=== PATIENT | female | born 1955 | race Caucasian/White ===

== ENCOUNTER 2017-04-09 07:06 | Inpatient (IN) ==
[2017-04-09] MEDS ORDERED: 0.9 % Sodium Chloride 1,000 ML IVC ONE ×2 (07:11→08:21)
[2017-04-09] MEDS ORDERED: levETIRAcetam 1,000 MG in 0.9 % Sodium Chloride 100 ML IVPB ONE (07:19)
[2017-04-09] MEDS ORDERED: *HR* LORazepam 2 MG/ML VIAL IVP ONE (07:19)
[2017-04-09] MEDS ORDERED: *HR* LORazepam 2 MG/ML VIAL ONE (07:19)
[2017-04-09 08:00] LABS: Bilirubin,Urine Negative (Negative); Blood,Urine Small (Negative); Clarity,Urine Clear (Clear); Color,Urine Yellow (Yellow); Glucose,Urine (UA) >=1000 mg/dL (Normal); Ketones,Urine Negative (Negative); Leukocyte Esterase,Urine Negative (Negative); Nitrite,Urine Positive (Negative); PH,Urine 5.5 pH Units (5.0-8.0); Protein,Urine Negative (Neg-Trace); Specific Gravity,Urine 1.028 (1.010-1.025); Urobilinogen,Urine Normal (Normal)
[2017-04-09 08:03] LABS: Bacteria,Urine Many per hpf (None-Few); Hyaline Casts,Urine None Seen per lpf (None-Few); Squamous Epithelial Cell,Urine None Seen per lpf (None-Few); WBC,Urine 15-30 per hpf (0-3)
[2017-04-09 08:06] LABS: Hematocrit 38.4 % (35.3-44.9); Hemoglobin 11.7 g/dL (11.5-15.4); Immature Granulocytes % 1.3 % (0-4); Lymphocytes # 0.2 K/mcL (0.6-4.6); Lymphocytes % 3.7 %; Mean Corpuscular HGB Conc 30.5 g/dL (31.6-35.5); Mean Corpuscular Hemoglobin 28.5 pg (28.0-33.3); Mean Corpuscular Volume 93.7 fL (83.0-100.0); Mean Platelet Volume 10.5 fL (9.4-12.4); Monocytes # 0.2 K/mcL (0.0-1.3); Monocytes % 2.4 %; Neutrophils # 5.8 K/mcL (1.6-8.9); Platelet Count 127 K/mcL (140-400); Red Cell Distribution Width 15.3 % (11.5-14.5); Segmented Neutrophils % 92.6 %
[2017-04-09] MEDS ORDERED: cefTRIAXone 1,000 MG in Water for inj. (sterile) 10 ML IVP ONE (08:11)
--- NOTE | 2017-04-09 08:14 | Emergency Department Note ---
START Narrative - START START: I examined this patient and my medical decision-making was reviewed with the Resident Physician. I agree with the documented findings, disposition and treatment plan as described except to the extent set forth below. 61-year-old female presented to the emergency room for a seizure. Patient has history of a brain tumor resection in the right frontal lobe and underwent radiation secondary to malignant melanoma. She recently moved to [place] from [place]. Unclear exactly how long her seizure lasted today. She does take Keppra twice daily for her seizures. She states she has never actually had a seizure but was put on the medication to prevent them. She has no focal motor or sensory deficits. CT of the brain was unremarkable for any acute process. She had 2 seizures in the emergency room. She was given Ativan 2 mg and also given 1 g of Keppra IV. pt to be admitted +UTI sugars elevated Insulin, IV fluids consult with Neuro and Hospitalist critical care time of 35 min spent in medical management of seizures, hyperglycemia, UTI.
[2017-04-09 08:17] LABS: VBG HCO3 19 mEq/L (21-27); VBG PCO2 36 mmHg (41-51); VBG PH 7.32 pH Units (7.32-7.42); VBG PO2 134 mmHg (25-50)
[2017-04-09 08:20] LABS: Alanine Aminotransferase 17 Units/L (0-55); Albumin 3.1 g/dL (3.5-5.0); Albumin/Globulin Ratio 0.8 (1.1-2.2); Alkaline Phosphatase 121 Units/L (38-126); Aspartate Amino Transferase 6 Units/L (5-34); BUN/Creatinine Ratio 19 (6-26); Bilirubin,Total 0.3 mg/dL (0.2-1.2); Blood Urea Nitrogen 27 mg/dL (7-20); Carbon Dioxide 16 mEq/L (19-29); Chloride 95 mEq/L (98-109); Globulin 3.7 g/dL (2.4-3.5); Magnesium 2.1 mg/dL (1.6-2.6); Osmolality,Calculated 319 (280-300); Phosphorous 4.3 mg/dL (2.3-4.7); Potassium 4.7 mEq/L (3.5-4.5); Sodium 130 mEq/L (136-145); Total Protein 6.8 g/dL (6.0-8.3); eGFR For African Americans 46 (> 60); eGFR For Non-African Americans 38 (> 60)
[2017-04-09 08:21] LABS: Acetaminophen < 1.0 mcg/mL (10-30); Ethanol < 10 mg/dL (0-10); Glucose 894 mg/dL (70-99)
[2017-04-09 08:28] LABS: Amphetamine Screen,Urine Negative ng/mL (Cutoff=1000); Barbiturate Screen,Urine Negative ng/mL (Cutoff=200); Benzodiazepines Screen,Urine Negative ng/mL (Cutoff=200); Cannabinoid Screen,Urine Negative ng/mL (Cutoff = 50); Cocaine Screen,Urine Negative ng/mL (Cutoff= 300); Opiate Screen,Urine Negative ng/mL (Cutoff=300); Phencyclidine Screen,Urine Negative ng/mL (Cutoff=25)
[2017-04-09 08:34] LABS: Beta-Hydroxybutyric Acid 0.27 mmol/L (0.02-0.27)
[2017-04-09] MEDS ORDERED: *HR* Dextrose 50 % in Water (Syg) 50 ML SYRINGE IVP PRN ×2 (08:36→18:34)
[2017-04-09] MEDS ORDERED: Insulin Human Regular 100 UNIT in 0.9 % Sodium Chloride 100 ML IVC SCH (08:45)
--- NOTE | 2017-04-09 08:46 | Emergency Department Note ---
Disposition Clinical Impression: Metastatic melanoma, Hyperglycemia, Seizure, Lactic acid acidosis Disposition: Admitted As Inpatient Condition: Fair Time of Disposition: 08:56 Neuro HPI - General Chief Complaint: ED Neuro Symptoms/Deficit Stated Complaint: Seizure Time Seen by Provider: 04/09/17 07:11 Source: patient, family, EMS Mode of arrival: EMS Limitations: altered mental status Nursing Notes Reviewed: Yes Vital Signs Reviewed: Yes - History of Present Illness HPI Narrative: Patient presents to the ED and was evaluated immediately upon arrival. Patient has no known history of seizure disorder. EMS states that they were called for her new onset left-sided paralysis. Upon arrival in obtaining more history from EMS. The patient does have a history of metastatic melanoma with brain malignancy that was removed in [place] a few months ago, surgically. She has had radiation and chemotherapy with her last dose about 2 weeks ago. They placed her on Keppra as prophylaxis for seizures. They also took her off her Lantus about a month ago and placed her on prednisone about 2 weeks ago. Family reports that the patient's blood sugar read high this morning and she was confused. States she was not feeling well when she went to bed last night and woke up this morning and was not responding as well to them. States initially she could not move her left upper extremity but that is now are resolved. She did have one generalized tonic-clonic seizure lasting less than a minute. It was witnessed by EMS. She also had a partial seizure witnessed by family. Upon arrival to the emergency department. She did have one generalized tonic-clonic seizure lasting about 45 seconds. 2 mg of IV Ativan were given with resolution of her seizure. Patient was initially alert and oriented and responding appropriately to questions. Denies any pain. States that she has had some burning with urination. No shortness breath or abdominal pain. - Related Data Home Medications: Home Medications Medication Instructions Recorded Confirmed Albuterol Sulfate [Albuterol 2 puff IH Q4HR PRN 01/10/15 04/09/17 Inhaler] Allopurinol [Zyloprim] 100 mg PO BID 01/10/15 04/09/17 Citalopram Hydrobromide [Celexa] 40 mg PO DAILY 01/10/15 04/09/17 Furosemide [Lasix] 80 mg PO DAILY 01/10/15 04/09/17 Indomethacin 50 mg PO QID PRN 01/10/15 04/09/17 Fluticasone Propionate [Flovent 220 mcg IH BID 02/02/16 04/09/17 Hfa] Gabapentin [Neurontin] 400 mg PO TID 04/09/17 04/09/17 LevETIRAcetam [Keppra] 500 mg PO BID 04/09/17 04/09/17 Levothyroxine Sodium [Synthroid] 200 mcg PO DAILY 04/09/17 04/09/17 Losartan [Cozaar] 25 mg PO DAILY 04/09/17 04/09/17 Omeprazole [PriLOSEC] 20 mg PO DAILY 04/09/17 04/09/17 PredniSONE [Deltasone] 20 mg PO AD 04/09/17 04/09/17 Previous Rx's Medication Instructions Recorded Prochlorperazine Maleate 10 mg PO Q6HR PRN #60 tablet 01/30/16 [Compazine] Oxycodone HCl 10 - 20 mg PO Q6H PRN #150 tab 03/07/16 Allergies/Adverse Reactions: Allergies Allergy/AdvReac Type Severity Reaction Status Date / Time No Known Allergies Allergy Verified 04/09/17 08:06 All systems ED: reviewed and negative except as stated. Constitutional: Denies: fever Eyes: Denies: vision change Cardiovascular: Denies: chest pain Respiratory: Denies: dyspnea Gastrointestinal: Denies: vomiting Genitourinary: Reports: urgency, dysuria Musculoskeletal: Denies: back pain Integumentary: Denies: rash Neurological: Reports: as per HPI, weakness, confusion. Denies: headache Endocrine: Reports: fatigue Past Medical History - Past Medical History Attestation: Yes The following information was validated with the patient. Source: patient Medical history: Reports: cancer, diabetes, hypertension, thyroid disease Surgical history: Reports: appendectomy, knee replacement (Bilateral TKR), other (LLE limb perfusion/infusion) Psychiatric history: Reports: no psych history PRICING ANALYST history: Reports: no PRICING ANALYST history - Social History Smoking Status: Former smoker Smokeless Tobacco Status: No Alcohol use: Reports: none Drug use: Reports: none Physical Exam - General Limitations: no limitations General appearance: lethargic (Sleepy but arouses easily) - Head Head exam: atraumatic, normocephalic, normal inspection - Eye Eye exam: Present: normal appearance, PERRL. Absent: EOMI - ENT ENT exam: normal exam, normal oropharynx, mucous membranes dry - Neck Neck exam: Absent: tenderness, meningismus - Chest Chest inspection: Present: normal inspection, symmetric chest wall rise - Respiratory Respiratory exam: Present: normal lung sounds bilaterally - Cardiovascular Cardiovascular exam: Present: regular rate, normal rhythm, normal heart sounds - Abdominal Exam Abdominal exam: Present: soft, Non-Tender. Absent: tenderness, distention, guarding, rebound, rigidity - Extremities Exam Extremities exam: Present: normal inspection, normal capillary refill, pedal edema - Expanded Lower Extremity Exam Hip/Pelvis exam: Present: pelvis stable - Neurological Exam Neurological exam: Present: alert (but sleepy, slightly confused, answers questions appropriately), oriented X3, CN II-XII intact - Expanded Neurological Exam Patient oriented to: Present: person, place, time Speech: Present: fluid speech Cranial nerves: facial palsy (VII): Normal (Patient easily distracted and will not follow commands to finish. Cranial nerve exam. Grossly unremarkable) Motor strength - LUE: 5/5 Motor strength - RUE: 5/5 Motor strength - LLE: 4/5 Motor strength - RLE: 5/5 Upper motor neuron exam: sandee neglect: Absent bilaterally, pronator drift: Absent bilaterally Sensory exam upper extremity: light touch: Normal Sensory exam lower extremity: light touch: Normal Coma Scale Eye Opening: Spontaneous Coma Scale Motor Response: Obeys Commands Coma Scale Verbal Response: Confused Coma Scale Total: 14 - Skin Skin exam: Present: warm, dry, intact, normal color Course Course Narrative: 61-year-old female with metastatic melanoma presenting with new onset seizure. We will get a head CT, chest x-ray, labs, EKG and admit. - Reevaluation(s) Reevaluation #1: Patient did have a 45 second generalized tonic-clonic seizure in the ER. Gave 2 mg of IV Ativan. No eye deviation. Patient postictal currently. Also given a gram of Breath. We will consult neurology and admitted to the hospitalist service. Patient's glucose is almost 900. Serum ketones are normal. She is not acidotic. There is no anion gap. Not likely DKA. Likely due to her steroids and being taken off her insulin. We will start her on an insulin drip and admit her to 2 N. - Consultations Consultation #1: I spoke with the on-call neurologist, Dr. Middleton. No further recommendations will admit for MRI and consultation Vital Signs Temperature 0 F L 04/09/17 07:16 Pulse Rate 106 04/09/17 07:16 Respiratory Rate 18 04/09/17 07:16 Blood Pressure 168/144 04/09/17 07:16 O2 Sat by Pulse Oximetry 97 04/09/17 07:16 Temperature 0 F L 04/09/17 07:16 Pulse Rate 97 04/09/17 09:53 Respiratory Rate 14 04/09/17 09:52 Blood Pressure 166/100 04/09/17 09:52 O2 Sat by Pulse Oximetry 96 04/09/17 10:06 Oxygen Delivery Oxygen Delivery Nasal Cannula Neuro Symptoms/Deficit - Medical Records Medical records reviewed: Yes I reviewed the patient's medical records. - Lab Data Lab results reviewed: Yes I reviewed the patient's lab results. Result diagrams: 04/09/17 07:59 04/09/17 10:22 Lab Results 04/09/17 04/09/17 04/09/17 Range/Units 07:45 07:45 07:59 WBC 6.2 (4.3-11.1) K/mcL RBC 4.10 (3.82-4.97) M/mcL Hgb 11.7 (11.5-15.4) g/dL Hct 38.4 (35.3-44.9) % MCV 93.7 (83.0-100.0) fL MCH 28.5 (28.0-33.3) pg MCHC 30.5 L (31.6-35.5) g/dL RDW 15.3 H (11.5-14.5) % Plt Count 127 L (140-400) K/mcL MPV 10.5 (9.4-12.4) fL Immature Gran % 1.3 (0-4) % Seg Neutrophils % 92.6 % Lymphocytes % 3.7 % Monocytes % 2.4 % Eosinophils % 0.0 % Basophils % 0.0 % Neutrophils # 5.8 (1.6-8.9) K/mcL Lymphocytes # 0.2 L (0.6-4.6) K/mcL Monocytes # 0.2 (0.0-1.3) K/mcL Eosinophils # 0.0 (0.0-0.6) K/mcL Basophils # 0.0 (0.0-0.2) K/mcL Immature Plt Fraction 2.0 (1.1-6.1) % VBG pH (7.32-7.42) pH Units VBG pCO2 (41-51) mmHg VBG pO2 (25-50) mmHg VBG HCO3 (21-27) mEq/L Sodium (136-145) mEq/L Potassium (3.5-4.5) mEq/L Chloride (98-109) mEq/L Carbon Dioxide (19-29) mEq/L BUN (7-20) mg/dL Creatinine (0.57-1.11) mg/dL Est GFR ( Amer) (> 60) Est GFR (Non-Af Amer) (> 60) BUN/Creatinine Ratio (6-26) Glucose (70-99) mg/dL Calculated Osmolality (280-300) Lactic Acid (0.5-2.2) mmol/L Calcium (8.6-10.8) mg/dL Phosphorus (2.3-4.7) mg/dL Magnesium (1.6-2.6) mg/dL Total Bilirubin (0.2-1.2) mg/dL AST (5-34) Units/L ALT (0-55) Units/L Alkaline Phosphatase (38-126) Units/L Serum Total Protein (6.0-8.3) g/dL Albumin (3.5-5.0) g/dL Globulin (2.4-3.5) g/dL Albumin/Globulin Ratio (1.1-2.2) Beta-Hydroxybutyric Acd (0.02-0.27) mmol/L Urine Color Yellow (Yellow) Urine Clarity Clear (Clear) Urine pH 5.5 (5.0-8.0) pH Units Ur Specific [place] 1.028 H (1.010-1.025) Urine Protein Negative (Neg-Trace) mg/dL Urine Glucose (UA) >=1000 H (Normal) mg/dL Urine Ketones Negative (Negative) mg/dL Urine Blood Small H (Negative) Urine Nitrite Positive A (Negative) Urine Bilirubin Negative (Negative) Urine Urobilinogen Normal (Normal) mg/dL Ur Leukocyte Esterase Negative (Negative) Urine Microscopic RBC 3-5 H (0-3) per hpf Urine Microscopic WBC 15-30 H (0-3) per hpf Ur Squamous Epith Cells None Seen (None-Few) per lpf Urine Bacteria Many H (None-Few) per hpf Hyaline Casts None Seen (None-Few) per lpf Urine Opiates Screen Negative (Gxfena=578) ng/mL Acetaminophen (10-30) mcg/mL Ur Barbiturates Screen Negative (Nhdakw=797) ng/mL Ur Phencyclidine Scrn Negative (Cutoff=25) ng/mL Ur Amphetamines Screen Negative (Rvcewm=8347) ng/mL U Benzodiazepines Scrn Negative (Jwyxsw=697) ng/mL Urine Cocaine Screen Negative (Cutoff= 300) ng/mL U Marijuana (THC) Screen Negative (Cutoff = 50) ng/mL Ethyl Alcohol (0-10) mg/dL 04/09/17 04/09/17 04/09/17 Range/Units 07:59 07:59 08:12 WBC (4.3-11.1) K/mcL RBC (3.82-4.97) M/mcL Hgb (11.5-15.4) g/dL Hct (35.3-44.9) % MCV (83.0-100.0) fL MCH (28.0-33.3) pg MCHC (31.6-35.5) g/dL RDW (11.5-14.5) % Plt Count (140-400) K/mcL MPV (9.4-12.4) fL Immature Gran % (0-4) % Seg Neutrophils % % Lymphocytes % % Monocytes % % Eosinophils % % Basophils % % Neutrophils # (1.6-8.9) K/mcL Lymphocytes # (0.6-4.6) K/mcL Monocytes # (0.0-1.3) K/mcL Eosinophils # (0.0-0.6) K/mcL Basophils # (0.0-0.2) K/mcL Immature Plt Fraction (1.1-6.1) % VBG pH 7.32 (7.32-7.42) pH Units VBG pCO2 36 L (41-51) mmHg VBG pO2 134 H (25-50) mmHg VBG HCO3 19 L (21-27) mEq/L Sodium 130 L (136-145) mEq/L Potassium 4.7 H (3.5-4.5) mEq/L Chloride 95 L (98-109) mEq/L Carbon Dioxide 16 L (19-29) mEq/L BUN 27 H (7-20) mg/dL Creatinine 1.42 H (0.57-1.11) mg/dL Est GFR ( Amer) 46 L (> 60) Est GFR (Non-Af Amer) 38 L (> 60) BUN/Creatinine Ratio 19 (6-26) Glucose 894 H* (70-99) mg/dL Calculated Osmolality 319 H (280-300) Lactic Acid 10.9 H* (0.5-2.2) mmol/L Calcium 9.0 (8.6-10.8) mg/dL Phosphorus 4.3 (2.3-4.7) mg/dL Magnesium 2.1 (1.6-2.6) mg/dL Total Bilirubin 0.3 (0.2-1.2) mg/dL AST 6 (5-34) Units/L ALT 17 (0-55) Units/L Alkaline Phosphatase 121 (38-126) Units/L Serum Total Protein 6.8 (6.0-8.3) g/dL Albumin 3.1 L (3.5-5.0) g/dL Globulin 3.7 H (2.4-3.5) g/dL Albumin/Globulin Ratio 0.8 L (1.1-2.2) Beta-Hydroxybutyric Acd 0.27 (0.02-0.27) mmol/L Urine Color (Yellow) Urine Clarity (Clear) Urine pH (5.0-8.0) pH Units Ur Specific [place] (1.010-1.025) Urine Protein (Neg-Trace) mg/dL Urine Glucose (UA) (Normal) mg/dL Urine Ketones (Negative) mg/dL Urine Blood (Negative) Urine Nitrite (Negative) Urine Bilirubin (Negative) Urine Urobilinogen (Normal) mg/dL Ur Leukocyte Esterase (Negative) Urine Microscopic RBC (0-3) per hpf Urine Microscopic WBC (0-3) per hpf Ur Squamous Epith Cells (None-Few) per lpf Urine Bacteria (None-Few) per hpf Hyaline Casts (None-Few) per lpf Urine Opiates Screen (Qsbhve=152) ng/mL Acetaminophen < 1.0 L (10-30) mcg/mL Ur Barbiturates Screen (Jbnrvr=383) ng/mL Ur Phencyclidine Scrn (Cutoff=25) ng/mL Ur Amphetamines Screen (Oevxuk=3093) ng/mL U Benzodiazepines Scrn (Oadxtl=085) ng/mL Urine Cocaine Screen (Cutoff= 300) ng/mL U Marijuana (THC) Screen (Cutoff = 50) ng/mL Ethyl Alcohol < 10 (0-10) mg/dL - Radiology Data Radiology results reviewed: Yes I reviewed the patient's radiology results. Head CT 04/09/17 07:11 IMPRESSION: No acute intracranial abnormality. Area of encephalomalacia with calcifications in the right frontal lobe, likely relating to postsurgical change relating to clinical history of prior surgical intervention for brain tumor. No definite recurrent or new tumor is identified on this noncontrast head CT. MRI would be a more sensitive modality to assess for tumor recurrence or new tumor. D/ / 04/09/2017 07:56:35 Serjio Yin MD / Danyell Bueno Interpreting Provider: Serjio Yin MD Chest X-Ray 04/09/17 08:14 IMPRESSION: 1. No acute cardiopulmonary disease. 2. On the previous chest CT from 2015, there were multiple pulmonary metastatic lesions. These are not evident on the current chest x-ray. Consider further evaluation with chest CT to evaluate for response to therapy. D/ / Steve Swan MD / Steve Swan MD Interpreting Provider: Steve Swan MD - EKG Data EKG attestation: Yes I reviewed and interpreted this EKG. EKG results narrative: Sinus tach, rate 106, ND interval 201, QRS 122, QTC 423, borderline right axis deviation, right bundle-branch block, no previous available TPA Checklist - LKW: 3-4.5 hrs Add. Warnings/Precautions Patient/family understanding: The patient/family members have been counseled and understood the risk, benefit , and alternatives of treatment. Critical Care Time Critical Care Time: Yes Total Critical Care Time: 30 Attestation: Critical care performed: Time is exclusive of separately billable procedures. Time includes: direct patient care, patient reassessment, coordination of patient care, interpretation of data (laboratory data, radiology data, and respiratory data), review of patient's medical records, medical consultation and documentation of patient care. Procedures included in critical care time: 30 minutes of critical care time for this critically ill patient. Patient has had recurrent seizures with history of malignant melanoma. Time spent in consultation, medical stabilization and reviewing laboratory results. Procedures excluded from critical care time:
[2017-04-09] MEDS ORDERED: 0.9 % Sodium Chloride 250 ML ONE (11:53)
[2017-04-09] MEDS ORDERED: Naloxone 0.4 MG/ML INJ IVP PRN (12:05)
[2017-04-09] MEDS ORDERED: Ondansetron 4 MG/2 ML VIAL IVP PRN (12:05)
[2017-04-09] MEDS ORDERED: *HR* Morphine 2 MG/ML SYRINGE IVP PRN (12:05)
[2017-04-09] MEDS ORDERED: *HR* HYDROcodone/Acet 5/325 mg TABLET PO PRN (12:05)
[2017-04-09] MEDS ORDERED: Acetaminophen 325 MG TABLET PO PRN (12:05)
[2017-04-09] MEDS ORDERED: Indomethacin 25 MG CAPSULE PO PRN (12:11)
[2017-04-09] MEDS ORDERED: predniSONE 20 MG TABLET PO SCH (12:15)
--- NOTE | 2017-04-09 12:53 | Internal Med History&Physical ---
<Lj Zuluaga - Last Filed: 04/09/17 15:43> Date of Encounter: 04/09/17 Time of Encounter: 11:30 Assessment and Plan (1) Seizure Current visit: Yes Status: Acute Patient's family reports two short-term seizures this morning most likely d/t pts. acute hyperglycemia of 894. Pt. and family deny hx of previous seizures. Heasd CT today shows area of encephalomalacia with calcifications in the right frontal lobe, likely relating to postsurgical change relating to clinical history of prior surgical intervention for brain tumor. No definite recurrent or new tumor is identified on this noncontrast head CT. MRI would be a more sensitive modality to assess for tumor recurrence or new tumor. Will continue Keppra. Insulin drip started to address hyperglycemia. Neuro checks Q4HR. Seizure precautions. Falls/safety precautions. Neurology consult ordered. NPO for now until ordered dysphagia/bedside swallow eval passed by pt. IV 0.9 NS @ 75 mL/ HR. Patient at risk for further morbidity due to current infection and seizure activity today, hx, and risk factors. Inpatient. (2) UTI (urinary tract infection) Current visit: Yes Status: Acute Initial U/A indicative for UTI. IVPB ceftriaxone 1,000 mg daily ordered for infection coverage. Monitor I&O and f/u labs. Qualifiers: Urinary tract infection type: site unspecified Hematuria presence: with hematuria Qualified Code(s): N39.0 - Urinary tract infection, site not specified; R31.9 - Hematuria, unspecified; R31.9 - Hematuria, unspecified (3) Weakness Current visit: Yes Status: Acute Acute weakness d/t seizure activity. Falls/safety precautions. PT/OT consults to assess for strength and stability for post-discharge planning. (4) Hyperglycemia Current visit: Yes Status: Acute BG of 894 on admission d/t being taken off of insulin following surgery several weeks ago and being placed on PO steroids. Insulin drip started. Will continue drip until hyperglycemia resolves and discontinue. Restart pts. insulin w/low- dose correction and hypoglycemic protocol after drip stopped. BG checks Q1HR then ACHS. A1c in a.m. labs. (5) Elevated lactic acid level Current visit: Yes Status: Acute Acutely elevated lactic acid of 4.2 most likely d/t seizures this morning versus UTI indicated by U/A. Repeat timed lactics. Pt. placed on IVPB ceftriaxone for UTI. (6) ERIC (acute kidney injury) Current visit: Yes Status: Acute ERIC with GFR of 38 and creatinine of 1.42. Will use IV fluids judiciously and avoid nephrtoxins (hold indomethacin). Monitor I&O and f/u labs. (7) HTN (hypertension) Current visit: Yes Status: Chronic Hx of chronic HTN. Monitor pt. and VS. Continue pts. Cozaar. Qualifiers: Hypertension type: essential hypertension Qualified Code(s): I10 - Essential (primary) hypertension (8) HLD (hyperlipidemia) Current visit: Yes Status: Chronic Hx of chronic HLD. Pt. does not currently take statin. Lipid panel in a.m. labs. Lipitor 20 mg HS. Qualifiers: Hyperlipidemia type: pure hypercholesterolemia Qualified Code(s): E78.00 - Pure hypercholesterolemia, unspecified; E78.0 - Pure hypercholesterolemia (9) Thyroid disease Current visit: Yes Status: Chronic Hx of chronic thyroid disease. Continue pts. Synthroid. (10) Metastatic cancer Current visit: Yes Status: Chronic Hx of cancer with metastases tot he lung and brain. Currently stable. Pt. to be followed by her oncologist. (11) Diabetes mellitus Current visit: Yes Status: Chronic Hx of chronic diabetes controlled w/insulin. Pt. taken off of her insulin following surgery from removal of malignant brain tumor several weeks ago. Presents with acute hyperglycemia on admission (894). Placed on insulin drip. BG now 284 several hours later. Will discontinue insulin drip and resume pts. regular insulin dosing with correction sliding scale and hypoglycemic protocol. BG checks Q1HR then ACHS. A1c in a.m. labs. Qualifiers: Diabetes mellitus type: type 2 Diabetes mellitus complication status: with hyperglycemia Diabetes mellitus vermin exterminator insulin use: with alf use Qualified Code(s): E11.65 - Type 2 diabetes mellitus with hyperglycemia; Z79.4 - group home (current) use of insulin (12) DVT prophylaxis Current visit: Yes Status: Acute Heparin 5,000 units SQ Q8 for DVT prophylaxis. Internal Medicine - H&P: HPI Chief complaint: Seizures Admitted From: Emergency Dept Plans for Post Hospital Care: Home History of present illness: Ms. 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 Patient's family reports she recently had malignancy of the brain removed and was placed on chemotherapy and steroid approximately 2 weeks ago. She was taken off her Lantus approximately month ago from the surgery and blood glucose was greater than 800 today on admission. Patient reports left- sided weakness and short-term confusion related to seizures but denies recent illness, fever, chills, nausea, vomiting, abdominal pain, shortness of breath, chest pain, palpitations, changes in vision, unusual bleeding, headache, dizziness, lightheadedness, pre-syncope, or syncope. Past Med Surg Social Fam HX - Past Medical History Source: patient, old records reviewed, obtained from family Medical history: cancer, COPD, diabetes, hypertension, kidney stones, thyroid disease Psychiatric history: no psych history - Past Surgical History Surgical History: appendectomy, knee replacement (Bilateral TKR), other (LLE limb perfusion/infusion) - Social History Smoking Status: Former smoker Smokeless Tobacco Status: No Alcohol use: none Drug use: none Current living situation: Home, With Family Activity Level: Independent ambulation, Uses cane/walker Recent Out of Country Travel Within the Last 8 Weeks: No Exposure or Possible Exposure to Illness During Travel: No Internal Medicine - H&P: Meds Albuterol Sulfate [Albuterol Inhaler] 2 puff IH Q4HR PRN 01/10/15 [History] Allopurinol [Zyloprim] 100 mg PO BID 01/10/15 [History] Citalopram Hydrobromide [Celexa] 40 mg PO DAILY 01/10/15 [History] Furosemide [Lasix] 80 mg PO DAILY 01/10/15 [History] Indomethacin 50 mg PO QID PRN 01/10/15 [History] Prochlorperazine Maleate [Compazine] 10 mg PO Q6HR PRN #60 tablet 01/30/16 [Rx] Fluticasone Propionate [Flovent Hfa] 220 mcg IH BID 02/02/16 [History] Oxycodone HCl 10 - 20 mg PO Q6H PRN #150 tab 03/07/16 [Rx] Gabapentin [Neurontin] 400 mg PO TID 04/09/17 [History] LevETIRAcetam [Keppra] 500 mg PO BID 04/09/17 [History] Levothyroxine Sodium [Synthroid] 200 mcg PO DAILY 04/09/17 [History] Losartan [Cozaar] 25 mg PO DAILY 04/09/17 [History] Omeprazole [PriLOSEC] 20 mg PO DAILY 04/09/17 [History] PredniSONE [Deltasone] 20 mg PO AD 04/09/17 [History] 3 Allergy/AdvReac Type Severity Reaction Status Date / Time No Known Allergies Allergy Verified 04/09/17 08:06 All Systems PM: A 10-system review of systems was performed and is negative for pertinent findings except as documented above in the HPI. - Constitutional Constitutional: as per HPI, weakness, no chills, no fever(s), no night sweats - EENT Eyes: no change in vision, no discharge, no pain, no photophobia Ears: no ear discharge, no ear pain, no tinnitus Nose, mouth and throat: no dysphagia, no nasal discharge, no neck pain, no sore throat - Breasts Breasts: as per HPI - Cardiovascular Cardiovascular ROS IM: no chest pain, no diaphoresis, no dyspnea, no lightheadedness, no palpitations, no syncope - Respiratory Respiratory: no cough, no dyspnea, no wheezing, no excessive phlegm production - Gastrointestinal Gastrointestinal: no abdominal pain, no diarrhea, no hematemesis, no hematochezia, no melena, no nausea, no vomiting - Genitourinary Genitourinary: no change in urinary stream, no dysuria, no flank pain, no hematuria Menstruation: as per HPI - Musculoskeletal Musculoskeletal ROS IM: no numbness, no tingling - Integumentary Integumentary IM: skin ulcer (Left lower padilla) - Neurological Neurological ROS: as per HPI, disequilibrium, weakness, other (Seizures x2) - Psychiatric Psychiatric: as per HPI - Endocrine Endocrine IM: as per HPI - Hematologic/Lymphatic Hematologic/Lymphatic: no easy bruising - Allergic/Immunologic Allergic/Immunologic: as per HPI - Constitutional Vitals: Temp Pulse Resp BP Pulse Ox 0 F L 97 14 166/100 96 04/09/17 07:16 04/09/17 09:53 04/09/17 09:52 04/09/17 09:52 04/09/17 10:06 General appearance: Present: cooperative, A&O X 2, pleasant, no acute distress, obese, answers questions appropriately - Head Head exam: Present: atraumatic, normal inspection, normocephalic - Eye Eye exam: Present: PERRL, conjuntiva pink, sclera anicteric Pupils: Present: PERRL - ENT ENT exam: Present: normal exam, normal external ear exam - Neck Neck exam general surgery: Present: normal inspection, supple, trachea midline. Absent: lymphadenopathy - Respiratory Respiratory exam: Present: CTAB. Absent: accessory muscle use, rales, rhonchi, wheezes - Cardiovascular Cardiovascular exam: Present: +S1, +S2, tachycardia. Absent: diastolic murmur, gallop, rubs, systolic murmur - GI/Abdominal GI/Abdominal exam: Present: normal bowel sounds, soft, no peritoneal signs. Absent: distended, tenderness - Rectal Rectal exam: Present: deferred - Additional comments: exam deferred. - Extremities Exam Extremities exam: Present: warm, radial pulses palpable and symmetrical. Absent : calf tenderness, cyanotic, pedal edema - Back Exam Back exam: Present: normal inspection - Neurological Exam Neurological exam: Present: alert, CN II-XII intact, no focal deficits. Absent : pronater drift, facial droop, speech deficit - Psychiatric Psychiatric exam: Present: normal affect, normal mood - Skin Skin exam: Present: erythema (Around wound located on lower left padilla) Internal Med - H&P Results - Labs CBC & Chem 7: 04/09/17 07:59 04/09/17 10:22 Labs: BMP 04/09/17 10:22 Glucose 556 H* - Diagnostic Studies Chest x-ray Additional comments: Impressions Chest X-Ray 04/09/17 08:14 IMPRESSION: 1. No acute cardiopulmonary disease. 2. On the previous chest CT from 2016, there were multiple pulmonary metastatic lesions. These are not evident on the current chest x-ray. Consider further evaluation with chest CT to evaluate for response to therapy. D/ / Steve Swan MD / Steve Swan MD Interpreting Provider: Setve Swan MD CT scan - head Additional comments: Impressions Head CT 04/09/17 07:11 IMPRESSION: No acute intracranial abnormality. Area of encephalomalacia with calcifications in the right frontal lobe, likely relating to postsurgical change relating to clinical history of prior surgical intervention for brain tumor. No definite recurrent or new tumor is identified on this noncontrast head CT. MRI would be a more sensitive modality to assess for tumor recurrence or new tumor. D/ / 04/09/2017 07:56:35 Serjio Yin MD / Danyell Bueno Interpreting Provider: Serjio Yin MD <Peña Castellanos P - Last Filed: 04/09/17 18:46> Date of Encounter: 04/09/17 Internal Medicine - H&P: HPI History of present illness: Ms. Uribe is a 61 year old female All Systems PM: A 10-system review of systems was performed and is negative for pertinent findings except as documented above in the HPI. - Constitutional Vitals: Temp Pulse Resp BP Pulse Ox 98.3 F 95 19 138/72 99 04/09/17 15:20 04/09/17 15:20 04/09/17 15:20 04/09/17 15:20 04/09/17 15:20 Internal Med - H&P Results - Labs CBC & Chem 7: 04/09/17 07:59 04/09/17 10:22 - Attending Attestation I examined this patient and my medical decision-making was reviewed with the Resident Physician. I agree with the documented findings, disposition and treatment plan as described except to the extent set forth below. Metastatic malignant melanoma. Was recently seen at [facility]. MRI scan of the head at [facility] was suggestive for regressing lesions. Lantus was stopped and prednisone was started. Yesterday at [place] her blood sugar was in 500s. She was told to get appointment with PCP to get a treatment for diabetes. This morning blood sugar was in 900. 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
[2017-04-09] MEDS: 0.9 % Sodium Chloride 1,000 ML IVC SCH (13:46)
[2017-04-09] MEDS: Pantoprazole 40 MG VIAL IVP SCH (13:51)
[2017-04-09] MEDS: *HR* Heparin 5,000 UNIT/ML VIAL SQ SCH (15:24)
[2017-04-09] MEDS: Gabapentin 400 MG CAPSULE PO SCH ×2 (15:24→20:49)
--- NOTE | 2017-04-09 16:06 | Neurology - Consult Note ---
Date of Encounter: 04/09/17 Time of Encounter: 16:01 Assessment and Plan (1) Seizure Current Visit: Yes Status: Leo Vivar has experienced a first-time seizure the etiology of which could possibly be multifactorial. Certainly the region right frontal region of the brain may be represent an area of cortical neuronal instability due to craniotomy and subsequent radiation therapy. Her seizure threshold may well have been lowered by the urinary tract infection and perhaps by the metabolic derangement. In any regard I agree that anti-epileptic medications are indicated. Keppra is a good agent. I would recommend increasing her dosage to 750 mg twice a day. I would like to obtain the MRI scans from the [facility] for our own review. I will reevaluate her tomorrow. She should continue to follow with her neuro-oncologist at the [facility] regarding further recommendations for management of metastatic lesions. History of Present Illness HPI: Ms. Uribe is a 61 year old female with a history of metastatic melanoma apparently with metastases to the long and brain who was seen for neurologic consultation secondary to episodes of seizure. Apparently she had a right frontal craniotomy to remove metastatic lesion back in August of this year in [place]. Apparently she was also treated with radiation therapy to the brain. She has never experienced episodes of seizure up until now however was apparently started on Keppra 500MG BID prophylactically back in August. Apparently yesterday she had a follow-up appointment as an outpatient with her providers associated with the [facility] clinic of [facility]. She also mentioned that she had an outpatient MRI scan of her brain. I do not have the results of this study. Apparently also a blood glucose level was checked and I am told it was elevated at 500. However she was discharged home and told to follow up with her primary care providers. Apparently this morning she had 2 episodes of generalized tonic-clonic seizure at home, and had other episodes of seizure activity upon arrival here at the [facility]. Upon admission she did have a CT scan of the head which revealed an area of right frontal encephalomalacia which is a result of a craniotomy done back in August to debulk a metastatic lesion. She also received radiation therapy to the brain. Apparently a urine sample was obtained which did reveal nitrates, elevated WBCs, elevated RBCs, many bacteria were present. Currently she is somnolent however is arousable and does make eye contact and is able to give a reasonable history. Past Med Surg Social Fam HX - Past Medical History Medical history: cancer, COPD, diabetes, hypertension, kidney stones, thyroid disease Psychiatric history: no psych history - Past Surgical History Surgical History: appendectomy, knee replacement (Bilateral TKR), other (LLE limb perfusion/infusion) - Social History Smoking Status: Former smoker Smokeless Tobacco Status: No Alcohol use: none Drug use: none Medications and Allergies Albuterol Sulfate [Albuterol Inhaler] 2 puff IH Q4HR PRN 01/10/15 [History] Allopurinol [Zyloprim] 100 mg PO BID 01/10/15 [History] Citalopram Hydrobromide [Celexa] 40 mg PO DAILY 01/10/15 [History] Furosemide [Lasix] 80 mg PO DAILY 01/10/15 [History] Indomethacin 50 mg PO QID PRN 01/10/15 [History] Prochlorperazine Maleate [Compazine] 10 mg PO Q6HR PRN #60 tablet 01/30/16 [Rx] Fluticasone Propionate [Flovent Hfa] 220 mcg IH BID 02/02/16 [History] Oxycodone HCl 10 - 20 mg PO Q6H PRN #150 tab 03/07/16 [Rx] Gabapentin [Neurontin] 400 mg PO TID 04/09/17 [History] LevETIRAcetam [Keppra] 500 mg PO BID 04/09/17 [History] Levothyroxine Sodium [Synthroid] 200 mcg PO DAILY 04/09/17 [History] Losartan [Cozaar] 25 mg PO DAILY 04/09/17 [History] Omeprazole [PriLOSEC] 20 mg PO DAILY 04/09/17 [History] PredniSONE [Deltasone] 20 mg PO AD 04/09/17 [History] 3 Allergy/AdvReac Type Severity Reaction Status Date / Time No Known Allergies Allergy Verified 04/09/17 08:06 All Systems: A 10-system review of systems was performed and is negative for pertinent findings except as documented above in the HPI. Review of Systems: She denies headache, denies visual changes, 10 point review of systems is consistent with history of present illness and otherwise negative. Physical Examination - Vital Signs Vital Signs: Initial Vital Signs Temp Pulse Resp BP Pulse Ox 0 F L 106 18 168/144 97 04/09/17 07:16 04/09/17 07:16 04/09/17 07:16 04/09/17 07:16 04/09/17 07:16 - Exam Exam: Mental status examination finds that she is somnolent however can be aroused. She is able to follow commands and answers questions. She makes eye contact. There is no agnosia, aphasia, or apraxia. Cranial nerve exam-pupils are equal and reactive to light and accommodation, extraocular motility is intact. Sensory to face is intact. Motor mastication is intact. There is no facial asymmetry is identified. Hearing is intact symmetrically, soft palate elevates bilaterally upon phonation gag reflex is intact. She is able to flex the sternocleidomastoid and trapezius muscles symmetrically without difficulty. Tongue protrudes midline. Motor exam-she has full power of the right upper and right lower extremities. She has 4/5 strength of the left deltoid biceps triceps and fire protection equipment technician, the left iliopsoas strength is 4/5, quadriceps 4/5, left tibialis anterior strength is full power. There are no involuntary movements identified, no atrophy present. Sensory exam finds light touch and deep touch are globally intact. Deep tendon reflexes are diminished throughout, no long tract signs are identified. Cerebellar exam finds no nystagmus, she performs finger-nose without ataxia. Results - Laboratory Findings CBC and BMP: 04/09/17 07:59 04/09/17 10:22 Abnormal lab findings: Abnormal lab results MCHC 30.5 g/dL (31.6-35.5) L 04/09/17 07:59 RDW 15.3 % (11.5-14.5) H 04/09/17 07:59 Plt Count 127 K/mcL (140-400) L 04/09/17 07:59 Lymphocytes # 0.2 K/mcL (0.6-4.6) L 04/09/17 07:59 VBG pCO2 36 mmHg (41-51) L 04/09/17 08:12 VBG pO2 134 mmHg (25-50) H 04/09/17 08:12 VBG HCO3 19 mEq/L (21-27) L 04/09/17 08:12 Sodium 130 mEq/L (136-145) L 04/09/17 07:59 Potassium 4.7 mEq/L (3.5-4.5) H 04/09/17 07:59 Chloride 95 mEq/L (98-109) L 04/09/17 07:59 Carbon Dioxide 16 mEq/L (19-29) L 04/09/17 07:59 BUN 27 mg/dL (7-20) H 04/09/17 07:59 Creatinine 1.42 mg/dL (0.57-1.11) H 04/09/17 07:59 Est GFR ( Amer) 46 (> 60) L 04/09/17 07:59 Est GFR (Non-Af Amer) 38 (> 60) L 04/09/17 07:59 Glucose 556 mg/dL (70-99) H* 04/09/17 10:22 POC Glucose 598 (58-89) H* 04/09/17 10:11 Calculated Osmolality 319 (280-300) H 04/09/17 07:59 Lactic Acid 4.2 mmol/L (0.5-2.2) H* 04/09/17 12:43 Albumin 3.1 g/dL (3.5-5.0) L 04/09/17 07:59 Globulin 3.7 g/dL (2.4-3.5) H 04/09/17 07:59 Albumin/Globulin Ratio 0.8 (1.1-2.2) L 04/09/17 07:59 Ur Specific [place] 1.028 (1.010-1.025) H 04/09/17 07:45 Urine Glucose (UA) >=1000 mg/dL (Normal) H 04/09/17 07:45 Urine Blood Small (Negative) H 04/09/17 07:45 Urine Nitrite Positive (Negative) A 04/09/17 07:45 Urine Microscopic RBC 3-5 per hpf (0-3) H 04/09/17 07:45 Urine Microscopic WBC 15-30 per hpf (0-3) H 04/09/17 07:45 Urine Bacteria Many per hpf (None-Few) H 04/09/17 07:45 Acetaminophen < 1.0 mcg/mL (10-30) L 04/09/17 07:59 Consult Discharge Plan - Plan Referrals: Dalila Acuña MD [Primary Care Provider] -
[2017-04-09] MEDS ORDERED: Dextrose Gel 15 GM PO PRN ×2 (18:34)
[2017-04-09] MEDS ORDERED: D5% in Water 1,000 ML IVC PRN (18:34)
--- NOTE | 2017-04-09 19:38 | Electrocardiograph Report ---
[address] [address] Test Date: 2017-04-09 Pat Name: Ghazala Uribe Department: 103 Room: 01 Gender: F Parts Cleaner: GERMAINE : 1955 Requested By: Fermín Hernandez Order Number: [id number] Reading MD: Jorge Agudelo MD Measurements Intervals [place] Rate: 106 P: 63 TX: 201 QRS: 92 QRSD: 122 T: 42 QT: 361 QTc: 423 Interpretive Statements SINUS TACHYCARDIA RIGHT BUNDLE BRANCH BLOCK Electronically Signed On 04-09-2017 19:36:18 EST by Jorge Agudelo MD
[2017-04-09] MEDS: Beclomethasone 80mcg MDI IH SCH (20:06)
[2017-04-09] MEDS: levETIRAcetam 250 MG TABLET PO SCH (20:49)
[2017-04-09] MEDS: Insulin LISPRO 300 UNITS/3 ML VIAL SQ SCH (20:50)
[2017-04-10] MEDS: *HR* Heparin 5,000 UNIT/ML VIAL SQ SCH ×4 (00:01→23:12)
[2017-04-10] MEDS: 0.9 % Sodium Chloride 1,000 ML IVC SCH (03:14)
[2017-04-10 05:21] LABS: Basophils % 0.1 %; Eosinophils # 0.1 K/mcL (0.0-0.6); Eosinophils % 1.6 %; Hematocrit 35.3 % (35.3-44.9); Hemoglobin 11.1 g/dL (11.5-15.4); Immature Granulocytes % 1.5 % (0-4); Immature Platelets 2.4 % (1.1-6.1); Lymphocytes % 14.5 %; Mean Corpuscular HGB Conc 31.4 g/dL (31.6-35.5); Mean Corpuscular Hemoglobin 28.3 pg (28.0-33.3); Mean Corpuscular Volume 90.1 fL (83.0-100.0); Mean Platelet Volume 10.2 fL (9.4-12.4); Monocytes # 0.3 K/mcL (0.0-1.3); Monocytes % 4.5 %; Neutrophils # 5.3 K/mcL (1.6-8.9); Platelet Count 153 K/mcL (140-400); Red Blood Count 3.92 M/mcL (3.82-4.97); Red Cell Distribution Width 16.2 % (11.5-14.5); Segmented Neutrophils % 77.8 %
[2017-04-10 05:26] LABS: Prothrombin Time 10.3 Seconds (9.4-12.1)
[2017-04-10 05:28] LABS: Activated Partial Thrombo Time 23.6 Seconds (26.0-36.0)
[2017-04-10 05:38] LABS: Alanine Aminotransferase 12 Units/L (0-55); Albumin 2.8 g/dL (3.5-5.0); Albumin/Globulin Ratio 0.9 (1.1-2.2); Alkaline Phosphatase 95 Units/L (38-126); Aspartate Amino Transferase 7 Units/L (5-34); BUN/Creatinine Ratio 24 (6-26); Bilirubin,Total 0.6 mg/dL (0.2-1.2); Blood Urea Nitrogen 20 mg/dL (7-20); Calcium 8.5 mg/dL (8.6-10.8); Carbon Dioxide 25 mEq/L (19-29); Chloride 105 mEq/L (98-109); Chol/HDL Ratio 2.1 (0-4.9); Cholesterol 220 mg/dL (< 200); Globulin 3.2 g/dL (2.4-3.5); Glucose 240 mg/dL (70-99); HDL Cholesterol 105 mg/dL (40-59); LDL Cholesterol,Calculated 61 mg/dL (0-99); Magnesium 1.9 mg/dL (1.6-2.6); Osmolality,Calculated 298 (280-300); Triglycerides 268 mg/dL (< 150); eGFR For African Americans > 60 (> 60); eGFR For Non-African Americans > 60 (> 60)
[2017-04-10 05:41] LABS: Sodium 139 mEq/L (136-145)
[2017-04-10 05:56] LABS: Hemoglobin A1C 9.1 %
[2017-04-10] MEDS: Beclomethasone 80mcg MDI IH SCH ×2 (08:08→19:56)
[2017-04-10 08:12] LABS: Thyroid Stimulating Hormone 1.837 mcIU/mL (0.350-4.840)
[2017-04-10] MEDS: Insulin LISPRO 300 UNITS/3 ML VIAL SQ SCH ×5 (08:53→20:36)
[2017-04-10] MEDS: levETIRAcetam 250 MG TABLET PO SCH ×2 (08:54→20:34)
[2017-04-10] MEDS: Pantoprazole 40 MG VIAL IVP SCH (08:54)
[2017-04-10] MEDS: Gabapentin 400 MG CAPSULE PO SCH ×3 (08:54→20:34)
[2017-04-10] MEDS: cefTRIAXone 1,000 MG in Water for inj. (sterile) 10 ML IVPB SCH (08:54)
[2017-04-10] MEDS ORDERED: predniSONE 20 MG TABLET PO SCH (12:00)
[2017-04-10] MEDS: predniSONE 20 MG TABLET PO SCH (13:57)
--- NOTE | 2017-04-10 14:50 | Internal Med Progress Note ---
<Leo Avila - Last Filed: 04/10/17 15:27> Date of Encounter: 04/10/17 Time of Encounter: 09:30 - Assessment and plan (1) Seizure Current Visit: Yes Status: Acute Assessment and plan: Keppra increased to 750mg daily. Seizure/fall precautions. Swallow eval assesses no overt s/s of aspiration/penetration risk. PT/OT recommending SNF due to LE weakness/unsteady gait, no supp O2 needs. No focal deficits today. Monitor neuro checks. (2) Metastatic melanoma Current Visit: Yes Status: Acute Assessment and plan: Mets from malignant melanoma of leg to bilateral lung and unilateral R frontal lobe. Will follow her oncologist at [facility]. Currently stable. (3) Diabetes mellitus Current Visit: Yes Status: Chronic Assessment and plan: eCW chart/labs/rx hx reviewed: -DM intially controlled on insulin. Pt reports insulin held for craniotomy, pt says discontinued by PCP because "my A1c was 5.1" -Medical records show lantus prescribed 01/08/17, some disconnect between patient perception and insulin needs. -A1c ordered by PCP 01/02/17; specimen not collected. Last documented A1c in eCW was 7.1 03/09/2015. -Currently on SSI, low-dose. A1c lab resulted 9.1. -Come discharge, will provide DM management until follow-up with PCP for insulin needs within a week. Qualifiers: Diabetes mellitus type: type 2 Diabetes mellitus complication status: with hyperglycemia Diabetes mellitus long term care administrator insulin use: with residential use Qualified Code(s): E11.65 - Type 2 diabetes mellitus with hyperglycemia; Z79.4 - long term (current) use of insulin (4) UTI (urinary tract infection) Current Visit: Yes Status: Acute Assessment and plan: UA positive, culture pending On Rocephin 1g daily Qualifiers: Urinary tract infection type: site unspecified Hematuria presence: with hematuria Qualified Code(s): N39.0 - Urinary tract infection, site not specified; R31.9 - Hematuria, unspecified; R31.9 - Hematuria, unspecified (5) ERIC (acute kidney injury) Current Visit: Yes Status: Acute Assessment and plan: ERIC 04/09/17 Cr 1.42 Currently 0.82; monitor, patient now receiving PO hydration. (6) HTN (hypertension) Current Visit: Yes Status: Chronic Assessment and plan: Vital signs stable, normotensive, continuing home med Cozaar. Qualifiers: Hypertension type: essential hypertension Qualified Code(s): I10 - Essential (primary) hypertension (7) Thyroid disease Current Visit: Yes Status: Chronic Assessment and plan: Continue Synthroid TSH 1.837 (8) DVT prophylaxis Current Visit: Yes Status: Acute Assessment and plan: On Heparin 5000U sq q8 - Subjective Interval history: Interval history: Ghazala Uribe, 61 y/o female, admitted for generalized tonic-clonic seizure yesterday, witnessed by family and EMS, 2 more seizures in ER abated with Ativan and Keppra. Pt s/p R frontal lobe craniotomy August 2016 for metastatic malignant melanoma. Patient goes to the [facility] in [facility] for oncology, last chemotherapy 2 weeks ago. Patient reports her basal BS was in the 500s in the days prior, had not been taking insulin, pt states she "had an A1c of 5.1, so insulin was discontinued" (current A1c >9). Keppra was increased to 750mg by neurology; etiology of seizure hyperglycemia/ UTI (positive on UA)/ or inherent nature of craniotomy. ROS: no focal defecits today, post-ictal amnesia and fatigue was present yesterday, improved today. - Constitutional Vitals: Temp Pulse Resp BP Pulse Ox 98.7 F 88 18 129/85 96 04/10/17 11:53 04/10/17 14:00 04/10/17 14:00 04/10/17 14:00 04/10/17 14:00 General appearance: Present: cooperative, A&O X 2, pleasant, no acute distress, obese, answers questions appropriately - Head Head exam: Present: normocephalic Additional comments: thinned hair, surgical scar well-healed. - Respiratory Respiratory exam: Present: CTAB. Absent: decreased breath sounds, respiratory distress, rhonchi - Cardiovascular Cardiovascular exam: Present: RRR, +S1, +S2 - Extremities Exam Extremities exam: Present: full ROM, normal inspection, warm - Neurological Exam Neurological exam: Present: oriented X3. Absent: pronater drift, facial droop, speech deficit Internal Medicine: Result - Labs CBC & Chem 7: 04/10/17 04:37 04/10/17 04:37 Labs: Short CBC 04/10/17 Range/Units 04:37 WBC 6.9 (4.3-11.1) K/mcL Hgb 11.1 L (11.5-15.4) g/dL Hct 35.3 (35.3-44.9) % Plt Count 153 (140-400) K/mcL Neutrophils # 5.3 (1.6-8.9) K/mcL BMP 04/10/17 04:37 Sodium 139 D Potassium 4.0 Chloride 105 Carbon Dioxide 25 BUN 20 Creatinine 0.82 Glucose 240 H Calcium 8.5 L Liver Function 04/10/17 Range/Units 04:37 Total Bilirubin 0.6 (0.2-1.2) mg/dL AST 7 (5-34) Units/L ALT 12 (0-55) Units/L Alkaline Phosphatase 95 (38-126) Units/L Albumin 2.8 L (3.5-5.0) g/dL - ABG Interpretation ABG results: PT/INR, D-dimer PT 10.3 Seconds (9.4-12.1) 04/10/17 04:37 Consult Discharge Plan - Plan Referrals: Emiliano Tineo MD [Partnered Physician] - 04/18/17 9:15 am <Bob Christianson - Last Filed: 04/10/17 17:19> Date of Encounter: 04/10/17 - Constitutional Vitals: Temp Pulse Resp BP Pulse Ox 98.5 F 87 17 140/77 96 04/10/17 16:20 04/10/17 16:20 04/10/17 16:20 04/10/17 16:20 04/10/17 16:20 Internal Medicine: Result - Labs CBC & Chem 7: 04/10/17 04:37 04/10/17 04:37 Labs: Short CBC 04/10/17 Range/Units 04:37 WBC 6.9 (4.3-11.1) K/mcL Hgb 11.1 L (11.5-15.4) g/dL Hct 35.3 (35.3-44.9) % Plt Count 153 (140-400) K/mcL Neutrophils # 5.3 (1.6-8.9) K/mcL BMP 04/10/17 04:37 Sodium 139 D Potassium 4.0 Chloride 105 Carbon Dioxide 25 BUN 20 Creatinine 0.82 Glucose 240 H Calcium 8.5 L Liver Function 04/10/17 Range/Units 04:37 Total Bilirubin 0.6 (0.2-1.2) mg/dL AST 7 (5-34) Units/L ALT 12 (0-55) Units/L Alkaline Phosphatase 95 (38-126) Units/L Albumin 2.8 L (3.5-5.0) g/dL - ABG Interpretation ABG results: PT/INR, D-dimer PT 10.3 Seconds (9.4-12.1) 04/10/17 04:37 - Attending Attestation I conducted a face to face diagnostic evaluation of this patient and my medical decision-making was reviewed with the Resident Physician, Dr. Leo Avila. I agree with the documented findings, disposition and treatment plan as described except to the extent set forth below: We will obtain EEG. Continue with insulin sliding scale. Add pre-meal insulin coverage and basal Levemir insulin. Follow-up with neurology. Continue with seizure precautions.
--- NOTE | 2017-04-10 16:49 | Neurology Progress Note ---
Date of Encounter: 04/10/17 Time of Encounter: 16:44 Assessment and Plan (1) Seizure Current Visit: Yes Status: Acute The seizure was likely due to metastatic brain lesions perhaps in combination with due to urinary tract infection however either of these processes alone could very well cause seizure activity. Unfortunately she will be at future risk for more episodes. I would recommend maintaining the Keppra 750 mg twice a day. She states that she has a follow-up appointment at the [facility] for another MRI scan of her brain in June. I would like to follow my office sometime in June. Otherwise I will reevaluate her at your request. Subjective Interval history: Chart review, patient was seen and examined. She is back to her normal baseline cognitive status. She denies headaches, she has not had any further episodes of seizure activity. Unfortunately we have not received a copy of the MRI scan requested from [facility]. She has several family members in the room today and they are all conversing with her normally. She has no new complaints today. I explained to the family that likely the seizure was the results of urinary tract infection along with the brain metastasis. She is currently on Keppra 750 twice a day and tolerating it well. Neurologic examination finds that she is awake alert and oriented to person place and time, she follows commands and answers questions appropriately. No agnosia aphasia or apraxia present. Cranial nerves II through XII are intact. Motor and sensory examinations have not changed. Objective - Constitutional Vitals: Temp Pulse Resp BP Pulse Ox 98.5 F 87 17 140/77 96 04/10/17 16:20 04/10/17 16:20 04/10/17 16:20 04/10/17 16:20 04/10/17 16:20 Results - Laboratory Findings CBC and BMP: 04/10/17 04:37 04/10/17 04:37 Abnormal lab findings: Abnormal lab results Hgb 11.1 g/dL (11.5-15.4) L 04/10/17 04:37 MCHC 31.4 g/dL (31.6-35.5) L 04/10/17 04:37 RDW 16.2 % (11.5-14.5) H 04/10/17 04:37 APTT 23.6 Seconds (26.0-36.0) L 04/10/17 04:37 VBG pCO2 36 mmHg (41-51) L 04/09/17 08:12 VBG pO2 134 mmHg (25-50) H 04/09/17 08:12 VBG HCO3 19 mEq/L (21-27) L 04/09/17 08:12 Glucose 240 mg/dL (70-99) H 04/10/17 04:37 POC Glucose 158 (58-89) H 04/10/17 11:46 Hemoglobin A1c 9.1 % (-5.6) H 04/10/17 04:37 Lactic Acid 4.2 mmol/L (0.5-2.2) H* 04/09/17 12:43 Calcium 8.5 mg/dL (8.6-10.8) L 04/10/17 04:37 Albumin 2.8 g/dL (3.5-5.0) L 04/10/17 04:37 Albumin/Globulin Ratio 0.9 (1.1-2.2) L 04/10/17 04:37 Triglycerides 268 mg/dL (< 150) H 04/10/17 04:37 Cholesterol 220 mg/dL (< 200) H 04/10/17 04:37 VLDL Cholesterol, Calc 54 mg/dL (< 31) H 04/10/17 04:37 HDL Cholesterol 105 mg/dL (40-59) H 04/10/17 04:37 Ur Specific [place] 1.028 (1.010-1.025) H 04/09/17 07:45 Urine Glucose (UA) >=1000 mg/dL (Normal) H 04/09/17 07:45 Urine Blood Small (Negative) H 04/09/17 07:45 Urine Nitrite Positive (Negative) A 04/09/17 07:45 Urine Microscopic RBC 3-5 per hpf (0-3) H 04/09/17 07:45 Urine Microscopic WBC 15-30 per hpf (0-3) H 04/09/17 07:45 Urine Bacteria Many per hpf (None-Few) H 04/09/17 07:45 Acetaminophen < 1.0 mcg/mL (10-30) L 04/09/17 07:59 Consult Discharge Plan - Plan Referrals: Emiliano Tineo MD [Partnered Physician] - 04/18/17 9:15 am
[2017-04-10] MEDS: Silvasorb 44.4 ML TUBE TP SCH (20:34)
[2017-04-11 04:22] LABS: Hemoglobin 10.5 g/dL (11.5-15.4); Immature Granulocytes % 0.7 % (0-4); Lymphocytes # 0.5 K/mcL (0.6-4.6); Lymphocytes % 10.8 %; Mean Corpuscular HGB Conc 31.8 g/dL (31.6-35.5); Mean Corpuscular Hemoglobin 28.2 pg (28.0-33.3); Mean Corpuscular Volume 88.7 fL (83.0-100.0); Mean Platelet Volume 9.7 fL (9.4-12.4); Monocytes # 0.1 K/mcL (0.0-1.3); Monocytes % 3.1 %; Neutrophils # 3.8 K/mcL (1.6-8.9); Platelet Count 126 K/mcL (140-400); Red Blood Count 3.72 M/mcL (3.82-4.97); Red Cell Distribution Width 14.8 % (11.5-14.5); Segmented Neutrophils % 85.4 %
[2017-04-11 04:38] LABS: Alanine Aminotransferase 10 Units/L (0-55); Albumin 2.7 g/dL (3.5-5.0); Albumin/Globulin Ratio 0.9 (1.1-2.2); Alkaline Phosphatase 98 Units/L (38-126); Aspartate Amino Transferase 7 Units/L (5-34); BUN/Creatinine Ratio 27 (6-26); Bilirubin,Total 0.5 mg/dL (0.2-1.2); Blood Urea Nitrogen 19 mg/dL (7-20); Calcium 8.7 mg/dL (8.6-10.8); Carbon Dioxide 24 mEq/L (19-29); Chloride 103 mEq/L (98-109); Glucose 334 mg/dL (70-99); Osmolality,Calculated 293 (280-300); Potassium 4.4 mEq/L (3.5-4.5); Sodium 134 mEq/L (136-145); Total Protein 5.7 g/dL (6.0-8.3); eGFR For African Americans > 60 (> 60); eGFR For Non-African Americans > 60 (> 60)
[2017-04-11] MEDS ORDERED: levETIRAcetam 250 MG TABLET PO SCH (08:07)
[2017-04-11] MEDS: Beclomethasone 80mcg MDI IH SCH (08:25)
[2017-04-11] MEDS: Insulin LISPRO 300 UNITS/3 ML VIAL SQ SCH ×6 (08:39→16:00)
[2017-04-11] MEDS: cefTRIAXone 1,000 MG in Water for inj. (sterile) 10 ML IVPB SCH (08:40)
[2017-04-11] MEDS: *HR* Heparin 5,000 UNIT/ML VIAL SQ SCH ×2 (08:40→15:57)
[2017-04-11] MEDS: Gabapentin 400 MG CAPSULE PO SCH ×2 (08:41→15:57)
[2017-04-11] MEDS: Silvasorb 44.4 ML TUBE TP SCH (08:49)
[2017-04-11] MEDS ORDERED: Insulin DETEMIR 100 UNIT/ML X5UNITS SQ SCH (09:00)
--- NOTE | 2017-04-11 10:29 | Discharge Summary ---
<Leo Avila - Last Filed: 04/11/17 14:29> Date of Encounter: 04/11/17 Time of Encounter: 09:00 - Discharge Diagnosis (1) Seizure Priority: Primary Status: Acute (2) Metastatic melanoma Priority: Secondary Status: Acute (3) Diabetes mellitus Priority: Secondary Status: Chronic Qualifiers: Diabetes mellitus type: type 2 Diabetes mellitus complication status: with hyperglycemia Diabetes mellitus intermediate teacher insulin use: with intermediate teacher use Qualified Code(s): E11.65 - Type 2 diabetes mellitus with hyperglycemia; Z79.4 - intermediate teacher (current) use of insulin (4) UTI (urinary tract infection) Priority: Secondary Status: Acute Qualifiers: Urinary tract infection type: site unspecified Hematuria presence: with hematuria Qualified Code(s): N39.0 - Urinary tract infection, site not specified; R31.9 - Hematuria, unspecified; R31.9 - Hematuria, unspecified (5) ERIC (acute kidney injury) Priority: Secondary Status: Acute (6) HTN (hypertension) Priority: Secondary Status: Chronic Qualifiers: Hypertension type: essential hypertension Qualified Code(s): I10 - Essential (primary) hypertension (7) Thyroid disease Priority: Secondary Status: Chronic (8) DVT prophylaxis Priority: Secondary Status: Acute - Discharge Medications Prescriptions: Insulin DETEMIR [Levemir] 5 unit SQ DAILY #5 [id number] Insulin LISPRO [HumaLOG] 4 units SQ TIDWM #5 vial levETIRAcetam [Keppra] 750 mg PO BID #90 tablet Home Medications: Albuterol Sulfate [Albuterol Inhaler] 2 puff IH Q4HR PRN 01/10/15 [History] Allopurinol [Zyloprim] 100 mg PO BID 01/10/15 [History] Citalopram Hydrobromide [Celexa] 40 mg PO DAILY 01/10/15 [History] Furosemide [Lasix] 80 mg PO DAILY 01/10/15 [History] Indomethacin 50 mg PO QID PRN 01/10/15 [History] Prochlorperazine Maleate [Compazine] 10 mg PO Q6HR PRN #60 tablet 01/30/16 [Rx] Fluticasone Propionate [Flovent Hfa] 220 mcg IH BID 02/02/16 [History] Oxycodone HCl 10 - 20 mg PO Q6H PRN #150 tab 03/07/16 [Rx] Gabapentin [Neurontin] 400 mg PO TID 04/09/17 [History] Levothyroxine Sodium [Synthroid] 200 mcg PO DAILY 04/09/17 [History] Losartan [Cozaar] 25 mg PO DAILY 04/09/17 [History] Omeprazole [PriLOSEC] 20 mg PO DAILY 04/09/17 [History] PredniSONE [Deltasone] 20 mg PO AD 04/09/17 [History] Insulin DETEMIR [Levemir] 5 unit SQ DAILY #5 [id number] 04/11/17 [Rx] Insulin LISPRO [HumaLOG] 4 units SQ TIDWM #5 vial 04/11/17 [Rx] levETIRAcetam [Keppra] 750 mg PO BID #90 tablet 04/11/17 [Rx] Allergies/Adverse Reactions: 3 Allergy/AdvReac Type Severity Reaction Status Date / Time No Known Allergies Allergy Verified 04/09/17 08:06 Date of admission: 04/09/17 13:51 Primary care physician: Dalila Acuña Consults: 04/09/17 15:24 Consult to Wound Care [CONS] Routine Reason for Consult: Patient has wound on left lower padilla on the front with some mild erythema. Wound appears to be healing. Please assess for wound care recommendations. Call Completed: No - Patient Status Disposition: Transfer SNF Functional capacity at discharge: independent ambulation Overall status at discharge: patient is progressing back to baseline - Discharge Instructions Instructions: Urinary Tract Infection in Women (DC), Cellulitis (DC), Hypothyroidism (DC), Diabetes Mellitus Type 2 in Adults (DC), Sepsis (DC), Chronic Hypertension (DC), Anemia (GEN) Follow Up With: Dalila Acuña MD [Primary Care Provider] - 04/18/17 9:15 am Fredo Middleton DO [Partnered Physician] - Additional Instructions: Pt to f/u with PCP within 1-2 weeks, appt scheduled already. Discuss Diabetes managment, bridging on insulin for now. Pt to f/u with Dr. Middleton, appt scheduled already. Dr. Middleton will evaluate EEG obtained. Pt to f/u with [facility] oncology, appt schedule already. Next chemotherapy in May. - Diet and Activity Activity: increase activity as tolerated Diet: advance to your usual diet Hospital course: Ghazala Uribe, past medical history of insulin dependent DM2, metastasis of malignant melanoma of L 3rd toe, admitted for new onset generalized tonic- clonic seizure, witnessed by family and EMS, 2 more seizures in ER abated with Ativan and Keppra. Pt seen by Dr. Fredo Middleton, neurology, increased Keppra to 750mg BID, EEG administered, pt without focal deficits. Pt advised to continue insulin for her DM2. Home medication of prednisone to be continued as per her [facility] oncologist instructions (patient has supply at home). Stable, swallow eval within normal function, PT/OT suggests SNF. Will be going to [facility] at discharge. - Time Spent with Patient Total time spent providing and/or coordinating discharge services: - Constitutional Vitals: Temp Pulse Resp BP Pulse Ox 98.1 F 83 16 156/92 98 04/11/17 07:58 04/11/17 09:10 04/11/17 08:26 04/11/17 07:58 04/11/17 08:26 General appearance: Present: cooperative, A&O X 2, pleasant, no acute distress, obese, answers questions appropriately - Head Head exam: Present: atraumatic Additional comments: craniotomy scar well-healed - Neck Neck exam general surgery: Present: full ROM - Respiratory Respiratory exam: Present: CTAB - Cardiovascular Cardiovascular exam: Present: RRR, +S1, +S2 - Neurological Exam Neurological exam: Present: oriented X3, no focal deficits. Absent: pronater drift, facial droop, speech deficit <Bob Christianson - Last Filed: 04/11/17 18:23> Date of Encounter: 04/11/17 Date of admission: 04/09/17 13:51 Primary care physician: Dalila Acuña Consults: 04/09/17 15:24 Consult to Wound Care [CONS] Routine Reason for Consult: Patient has wound on left lower padilla on the front with some mild erythema. Wound appears to be healing. Please assess for wound care recommendations. Call Completed: No 04/11/17 11:47 Consult to Interpret Exam [CONS] Routine Consulting Provider: Fredo Middleton Consult to Interpret Exam: Interpret EEG - Patient Status Functional capacity at discharge: independent ambulation Overall status at discharge: patient is progressing back to baseline Hospital course: Ms. Uribe is a 61 year old female - Time Spent with Patient Total time spent providing and/or coordinating discharge services: - Constitutional Vitals: Temp Pulse Resp BP Pulse Ox 98.9 F 82 16 152/86 96 04/11/17 15:28 04/11/17 16:08 04/11/17 15:28 04/11/17 15:28 04/11/17 15:28 - Attending Attestation I conducted a face to face diagnostic evaluation of this patient and my medical decision-making was reviewed with the Resident Physician, Dr. Leo Avila. I agree with the documented findings, disposition and treatment plan as described except to the extent set forth below: The patient is back to baseline. There has been no seizure over the last 24 hours. She has no focal neurological deficits on my examination today. Plan: Discharge home with close follow-up with PCP and neurology.
[2017-04-11] MEDS: predniSONE 20 MG TABLET PO SCH (11:51)
--- NOTE | 2017-04-11 14:28 | Physician Discharge Referral ---
ExtendedCare Referral Info Transfer To: [facility] ([facility]) Provider in Charge: Dr. Christianson Provider in Charge after Transfer: PCP Institutional Level of Care: Skilled - Diagnosis (1) Seizure Status: Acute (2) Metastatic melanoma Status: Acute (3) Diabetes mellitus Status: Chronic (4) UTI (urinary tract infection) Status: Acute (5) ERIC (acute kidney injury) Status: Acute (6) HTN (hypertension) Status: Chronic (7) Thyroid disease Status: Chronic (8) DVT prophylaxis Status: Acute - Transfer Medications Prescriptions: Insulin DETEMIR [Levemir] 5 unit SQ DAILY #5 [id number] Insulin LISPRO [HumaLOG] 4 units SQ TIDWM #5 vial levETIRAcetam [Keppra] 750 mg PO BID #90 tablet Home Medications: Albuterol Sulfate [Albuterol Inhaler] 2 puff IH Q4HR PRN 01/10/15 [History] Allopurinol [Zyloprim] 100 mg PO BID 01/10/15 [History] Citalopram Hydrobromide [Celexa] 40 mg PO DAILY 01/10/15 [History] Furosemide [Lasix] 80 mg PO DAILY 01/10/15 [History] Indomethacin 50 mg PO QID PRN 01/10/15 [History] Prochlorperazine Maleate [Compazine] 10 mg PO Q6HR PRN #60 tablet 01/30/16 [Rx] Fluticasone Propionate [Flovent Hfa] 220 mcg IH BID 02/02/16 [History] Oxycodone HCl 10 - 20 mg PO Q6H PRN #150 tab 03/07/16 [Rx] Gabapentin [Neurontin] 400 mg PO TID 04/09/17 [History] Levothyroxine Sodium [Synthroid] 200 mcg PO DAILY 04/09/17 [History] Losartan [Cozaar] 25 mg PO DAILY 04/09/17 [History] Omeprazole [PriLOSEC] 20 mg PO DAILY 04/09/17 [History] PredniSONE [Deltasone] 20 mg PO AD 04/09/17 [History] Insulin DETEMIR [Levemir] 5 unit SQ DAILY #5 [id number] 04/11/17 [Rx] Insulin LISPRO [HumaLOG] 4 units SQ TIDWM #5 vial 11/10/17 [Rx] levETIRAcetam [Keppra] 750 mg PO BID #90 tablet 04/11/17 [Rx] Allergies/Adverse Reactions: 3 Allergy/AdvReac Type Severity Reaction Status Date / Time No Known Allergies Allergy Verified 04/09/17 08:06 - Respiratory Orders Smoking Cessation: Smoking cessation has been advised. For more information, call the [place] Tobacco Quit Line at 5-752-BFRM-NOW. CERTIFICATION: I certify that the transfer of the above named patient to an Extended Care Facility is necessary for the continuing treatment of the diagnosis listed. The above information is true and accurate reflection of patient's current condition. Confidential - Redisclosure prohibited without a patient's written consent.
[2017-04-11 15:34] VITALS: BP 152/86
== END 2017-04-11 19:37 | DRG 101 ==
LOC: 2NNU 07:06 → EMEROO 07:06 → 2NNU 09:48
PROVIDERS: ADMIT Internal Medicine; ATTEND Internal Medicine

== ENCOUNTER 2018-06-22 19:13 | Inpatient (IN) ==
[2018-06-22] MEDS ORDERED: 0.9 % Sodium Chloride 500 ML IVC ONE (20:02)
[2018-06-22] MEDS ORDERED: 0.9 % Sodium Chloride 500 ML ONE (20:03)
[2018-06-22] MEDS ORDERED: Ondansetron 4 MG/2 ML VIAL IVP ONE (20:07)
--- NOTE | 2018-06-22 20:07 | Emergency Department Note ---
Disposition Clinical Impression: Cellulitis Disposition: Admitted As Inpatient Condition: Fair Time of Disposition: 00:57 General Adult HPI - General Stated complaint: poss sepsis Time Seen by Provider: 06/22/18 19:16 Source: patient Limitations: no limitations Nursing Notes Reviewed: Yes Vital Signs Reviewed: Yes - History of Present Illness HPI Narrative: 63 yo female with past medical history of metastatic melanoma and recent admi ssion for sepsis with a UTI presents to the emergency department with return of possible sepsis. Tonight she was at home when her two needle machine operator noted that she seemed more confused than normal, looking for things and being unable to find them and not knowing the date. This is how she presented last time she had sepsis and the two needle machine operator became worried. The patient has also had a swollen, red, warm to touch left leg where she has had cellulitis in the past. She is normally on 3 L of oxygen but felt more short of breath than she normally does while wearing this today. She denies fevers, chest pain, abdominal pain. She normally has nausea and vomits a lot. She does not think that the last time she used the restroom it burned when she urinated. Based on review of her previous hospitalization she had this left leg cellulitis at discharge. She has been taking Levaquin outpatient with her last dose on . Pain Scale: 6 - Related Data Home Medications Medication Instructions Recorded Confirmed RX: Albuterol Sulfate [Albuterol 2 puff IH Q4HR PRN 01/10/15 06/09/18 Inhaler] RX: Allopurinol [Zyloprim] 100 mg PO BID 01/10/15 06/09/18 RX: Furosemide [Lasix] 80 mg PO DAILY 01/10/15 06/09/18 RX: Fluticasone Propionate 220 mcg IH BID PRN 02/02/16 06/09/18 [Flovent Hfa] RX: Levothyroxine Sodium 200 mcg PO DAILY 04/09/17 06/09/18 [Synthroid] RX: Omeprazole [PriLOSEC] 20 mg PO DAILY 04/09/17 06/09/18 RX: Insulin ASPART [NovoLOG] 0 unit SQ TIDWM 07/10/17 06/09/18 RX: Insulin DETEMIR [Levemir] 24 unit SQ DAILY 07/10/17 06/09/18 RX: Metformin HCl [Glucophage] 1,000 mg PO BID 07/10/17 06/09/18 RX: Umeclidinium [place] [Incruse 62.5 mcg IH DAILY 07/10/17 06/09/18 Ellipta] Previous Rx's Medication Instructions Recorded RX: levETIRAcetam [Keppra] 750 mg PO BID #90 tablet 04/11/17 RX: Ipratropium/Albuterol Neb 3 ml IH Q6ISACR PRN #100 inhsol 08/23/17 [Duoneb] RX: Amitriptyline [Elavil] 50 mg PO HS #90 tablet 02/06/18 RX: Gabapentin [Neurontin] 800 mg PO TID #90 tablet 06/01/18 RX: OxyCODONE ER (12 HR) 20 mg PO Q12HR 30 Days #60 06/04/18 [OxyCONTIN] tab.er.12h RX: OxyCODONE Immed Rel 10 - 20 mg PO Q4H PRN 30 Days #360 06/04/18 [Roxicodone 10 MG] tab RX: Promethazine [Phenergan] 25 mg PO Q6HR PRN #60 tablet 06/04/18 RX: Temozolomide [Temodar] 250 mg PO AD #5 capsule 06/04/18 RX: Citalopram Hydrobromide 20 mg PO DAILY #0 06/13/18 [Celexa] RX: levoFLOXacin [Levaquin] 750 mg PO DAILY #7 tablet 06/13/18 Allergies Allergy/AdvReac Type Severity Reaction Status Date / Time No Known Allergies Allergy Verified 04/21/18 09:16 All systems ED: reviewed and negative except as stated. Review of Systems: As Per HPI Constitutional: Reports: weakness. Denies: fever, chills Cardiovascular: Denies: chest pain, palpitations, dyspnea on exertion, edema Respiratory: Reports: cough, dyspnea. Denies: wheezes Gastrointestinal: Reports: nausea, vomiting. Denies: abdominal pain, diarrhea, constipation Genitourinary: Denies: dysuria, hematuria Integumentary: Reports: other (LLE cellulitis) Neurological: Denies: headache Past Medical History - Past Medical History Medical history: Reports: cancer, COPD, diabetes, hypertension, kidney stones, thyroid disease Surgical history: Reports: appendectomy, knee replacement, other Psychiatric history: Reports: anxiety CARDIAC SURGEON history: Reports: no CARDIAC SURGEON history - Social History Smoking Status: Former smoker Smokeless Tobacco Status: No Alcohol use: Reports: none Drug use: Reports: none Physical Exam - General Limitations: no limitations General appearance: alert, in no apparent distress - Head Head exam: atraumatic, normocephalic - Eye Eye exam: Present: normal appearance, PERRL, EOMI - ENT ENT exam: mucous membranes dry - Neck Neck exam: Present: normal inspection. Absent: tenderness, lymphadenopathy - Chest Chest inspection: Present: normal inspection - Respiratory Respiratory exam: Present: other (Decreased lung sounds bilaterally) - Cardiovascular Cardiovascular exam: Present: regular rate, normal rhythm - Abdominal Exam Abdominal exam: Present: soft, Non-Tender. Absent: distention, guarding, rebound, rigidity - Extremities Exam Extremities exam: Present: other (Entire left leg swollen with well demarcated area of erythema. Leg is warm to touch. Pedal pulses palpable bilaterally. There is 2+ pitting edema to the left foot and padilla. Patient is missing left foot third digit and there is a chronic ulceration without superimposed infection on the top of the left foot where her melanoma was removed.) - Neurological Exam Neurological exam: Present: alert, oriented X3, CN II-XII intact - Psychiatric Psychiatric exam: Present: normal affect, normal mood - Skin Skin exam: Present: warm, dry Course Vital Signs Temperature 99.7 F H 06/22/18 19:33 Pulse Rate 94 06/22/18 19:33 Respiratory Rate 16 06/22/18 19:33 Blood Pressure 112/76 06/22/18 19:33 O2 Sat by Pulse Oximetry 100 06/22/18 19:33 Temperature 99.7 F H 06/22/18 19:33 Pulse Rate 103 06/22/18 23:45 Respiratory Rate 18 06/22/18 23:45 Blood Pressure 120/64 06/22/18 23:45 O2 Sat by Pulse Oximetry 98 06/22/18 23:45 Oxygen Delivery Oxygen Delivery Nasal Cannula Medical Decision Making - [facility] Narrative Medical decision making narrative: This is an ill-appearing woman with history of metastatic melanoma and what appears to be recurrence of her left leg cellulitis. There is concern for sepsis. Her vital signs are stable at this point. We will do a septic workup and give her a liter of fluid and Zofran for her nausea. Pending lab results we will consider admission versus discharge for further treatment of the cellulitis. 2114 - patient's lab work is unremarkable with exception to his slight elevation in her creatinine from discharge to 1.54. Awaiting her urinalysis. We gave her 500 mL bolus but the patient has not produced any urine via straight catheter. We will order another liter of normal saline to try to obtain urine output. 2324 - patient was able to provide a urine sample via straight catheter after another liter of fluids. The urine does not show any signs of infection. Spoke with the patient's family to see what their comfort level would be on taking this patient home and they stated that they would feel better if she was admitted for further treatment. We will treat her cellulitis with Doxycycline and Unasyn and page the hospitalist for admission. 54 - Dr. Zavala has accepted the patient for inpatient treatment for cellulitis. - Medical Records Medical records reviewed: Yes I reviewed the patient's medical records. - Lab Data Lab results reviewed: Yes I reviewed the patient's lab results. Result diagrams: 06/22/18 20:27 06/22/18 20:27 Lab Results 06/22/18 06/22/18 06/22/18 Range/Units 20:27 20:27 20:27 WBC 7.0 (4.3-11.1) K/mcL RBC 2.85 L (3.82-4.97) M/mcL Hgb 8.0 L (11.5-15.4) g/dL Hct 26.0 L (35.3-44.9) % MCV 91.2 (83.0-100.0) fL MCH 28.1 (28.0-33.3) pg MCHC 30.8 L (31.6-35.5) g/dL RDW 14.8 H (11.5-14.5) % Plt Count 114 L (140-400) K/mcL MPV 9.7 (9.4-12.4) fL Immature Gran % 1.3 (0-4) % Seg Neutrophils % 82.0 % Lymphocytes % 6.2 % Monocytes % 7.2 % Eosinophils % 3.2 % Basophils % 0.1 % Neutrophils # 5.7 (1.6-8.9) K/mcL Lymphocytes # 0.4 L (0.6-4.6) K/mcL Monocytes # 0.5 (0.0-1.3) K/mcL Eosinophils # 0.2 (0.0-0.6) K/mcL Basophils # 0.0 (0.0-0.2) K/mcL PT 12.7 H (9.4-12.1) Seconds INR 1.1 APTT 26.5 (26.0-36.0) Seconds VBG pH (7.32-7.42) pH Units VBG pCO2 (41-51) mmHg VBG pO2 (25-50) mmHg VBG HCO3 (21-27) mEq/L Sodium 133 L (136-145) mEq/L Potassium 4.7 (3.5-5.1) mEq/L Chloride 96 L (98-107) mEq/L Carbon Dioxide 32 H (23-29) mEq/L BUN 20 (8-23) mg/dL Creatinine 1.56 H (0.60-1.20) mg/dL Est GFR ( Amer) 41 L (> 60) Est GFR (Non-Af Amer) 34 L (> 60) BUN/Creatinine Ratio 13 (6-26) Glucose 117 H (70-105) mg/dL Calculated Osmolality 280 (280-300) Lactic Acid (0.5-2.2) mmol/L Calcium 9.7 (8.6-10.3) mg/dL Phosphorus 3.5 (2.7-4.5) mg/dL Magnesium 1.6 (1.6-2.6) mg/dL Total Bilirubin 0.3 (0.3-1.0) mg/dL Direct Bilirubin 0.0 (0.0-0.2) mg/dL Indirect Bilirubin 0.3 (0.0-1.2) mg/dL AST 8 L (13-39) Units/L ALT 5 L (7-52) Units/L Alkaline Phosphatase 50 (34-104) Units/L Troponin I < 0.03 (< 0.04) ng/mL Serum Total Protein 6.4 (6.4-8.9) g/dL Albumin 3.8 (3.5-5.7) g/dL Globulin 2.6 (2.4-3.5) g/dL Albumin/Globulin Ratio 1.5 (1.1-2.2) Urine Color (Yellow) Urine Clarity (Clear) Urine pH (5.0-8.0) pH Units Ur Specific [place] (1.010-1.025) Urine Protein (Neg-Trace) mg/dL Urine Glucose (UA) (Normal) mg/dL Urine Ketones (Negative) mg/dL Urine Blood (Negative) Urine Nitrite (Negative) Urine Bilirubin (Negative) Urine Urobilinogen (Normal) mg/dL Ur Leukocyte Esterase (Negative) Ur Culture Indicated? (NO) 06/22/18 06/22/18 06/22/18 Range/Units 20:27 20:38 23:04 WBC (4.3-11.1) K/mcL RBC (3.82-4.97) M/mcL Hgb (11.5-15.4) g/dL Hct (35.3-44.9) % MCV (83.0-100.0) fL MCH (28.0-33.3) pg MCHC (31.6-35.5) g/dL RDW (11.5-14.5) % Plt Count (140-400) K/mcL MPV (9.4-12.4) fL Immature Gran % (0-4) % Seg Neutrophils % % Lymphocytes % % Monocytes % % Eosinophils % % Basophils % % Neutrophils # (1.6-8.9) K/mcL Lymphocytes # (0.6-4.6) K/mcL Monocytes # (0.0-1.3) K/mcL Eosinophils # (0.0-0.6) K/mcL Basophils # (0.0-0.2) K/mcL PT (9.4-12.1) Seconds INR APTT (26.0-36.0) Seconds VBG pH 7.41 (7.32-7.42) pH Units VBG pCO2 51 (41-51) mmHg VBG pO2 43 (25-50) mmHg VBG HCO3 32 H (21-27) mEq/L Sodium (136-145) mEq/L Potassium (3.5-5.1) mEq/L Chloride (98-107) mEq/L Carbon Dioxide (23-29) mEq/L BUN (8-23) mg/dL Creatinine (0.60-1.20) mg/dL Est GFR ( Amer) (> 60) Est GFR (Non-Af Amer) (> 60) BUN/Creatinine Ratio (6-26) Glucose (70-105) mg/dL Calculated Osmolality (280-300) Lactic Acid 0.9 (0.5-2.2) mmol/L Calcium (8.6-10.3) mg/dL Phosphorus (2.7-4.5) mg/dL Magnesium (1.6-2.6) mg/dL Total Bilirubin (0.3-1.0) mg/dL Direct Bilirubin (0.0-0.2) mg/dL Indirect Bilirubin (0.0-1.2) mg/dL AST (13-39) Units/L ALT (7-52) Units/L Alkaline Phosphatase (34-104) Units/L Troponin I (< 0.04) ng/mL Serum Total Protein (6.4-8.9) g/dL Albumin (3.5-5.7) g/dL Globulin (2.4-3.5) g/dL Albumin/Globulin Ratio (1.1-2.2) Urine Color Yellow (Yellow) Urine Clarity Clear (Clear) Urine pH 5.5 (5.0-8.0) pH Units Ur Specific [place] 1.015 (1.010-1.025) Urine Protein Negative (Neg-Trace) mg/dL Urine Glucose (UA) Normal (Normal) mg/dL Urine Ketones Negative (Negative) mg/dL Urine Blood Negative (Negative) Urine Nitrite Negative (Negative) Urine Bilirubin Negative (Negative) Urine Urobilinogen Normal (Normal) mg/dL Ur Leukocyte Esterase Negative (Negative) Ur Culture Indicated? NO (NO) - Radiology Data Radiology results reviewed: Yes I reviewed the patient's radiology results. - EKG Data EKG #1 EKG attestation: Yes I reviewed and interpreted this EKG. EKG results narrative: EKG obtained at 19:29 on 06/22/2018 Her rate 93 bpm, WA interval 217, QRS duration 144, QT 391, QTC 487 Sinus rhythm with a prolonged WA interval and right bundle branch block. No evidence of ST segment elevations or depressions. No arrhythmias. No signs of any cardiac ischemia. Unchanged when compared to previous EKG obtained on 06/13/2018. Attestation Statement - Attestation Attestation: Dr. Tsai note: Patient seen in conjunction with resident Dr. Faby Jean Baptiste. Please see her charting for complete documentation. Assessment [id number] time with the patient and agree with the patient's treatment and disposition. Patient brought in by family because her left leg and knee and foot area is more erythematous than the day prior. History of cellulitis in the same area just 5 days ago for which she was on Levaquin. Additionally she is unable to walk due to weakness and pain today. Afebrile. Vitals are stable. Urinalysis unremarkable. CBC and chemistry unremarkable. Patient will no bacteremia or sepsis noted at this time. Will Be admitted for treatment of her cellulitis and inability to ambulate.
[2018-06-22 20:43] LABS: VBG HCO3 32 mEq/L (21-27); VBG PCO2 51 mmHg (41-51); VBG PH 7.41 pH Units (7.32-7.42); VBG PO2 43 mmHg (25-50)
[2018-06-22 20:47] LABS: Basophils % 0.1 %; Eosinophils # 0.2 K/mcL (0.0-0.6); Eosinophils % 3.2 %; Immature Granulocytes % 1.3 % (0-4); Lymphocytes # 0.4 K/mcL (0.6-4.6); Lymphocytes % 6.2 %; Mean Corpuscular HGB Conc 30.8 g/dL (31.6-35.5); Mean Corpuscular Hemoglobin 28.1 pg (28.0-33.3); Mean Corpuscular Volume 91.2 fL (83.0-100.0); Mean Platelet Volume 9.7 fL (9.4-12.4); Monocytes # 0.5 K/mcL (0.0-1.3); Monocytes % 7.2 %; Neutrophils # 5.7 K/mcL (1.6-8.9); Platelet Count 114 K/mcL (140-400); Red Blood Count 2.85 M/mcL (3.82-4.97); Red Cell Distribution Width 14.8 % (11.5-14.5)
[2018-06-22 20:53] LABS: INR 1.1; Prothrombin Time 12.7 Seconds (9.4-12.1)
[2018-06-22 20:55] LABS: Activated Partial Thrombo Time 26.5 Seconds (26.0-36.0)
[2018-06-22 20:59] LABS: Troponin I < 0.03 ng/mL (< 0.04)
[2018-06-22 21:00] LABS: Alanine Aminotransferase 5 Units/L (7-52); Albumin 3.8 g/dL (3.5-5.7); Albumin/Globulin Ratio 1.5 (1.1-2.2); Alkaline Phosphatase 50 Units/L (34-104); Aspartate Amino Transferase 8 Units/L (13-39); BUN/Creatinine Ratio 13 (6-26); Bilirubin,Indirect 0.3 mg/dL (0.0-1.2); Bilirubin,Total 0.3 mg/dL (0.3-1.0); Blood Urea Nitrogen 20 mg/dL (8-23); Calcium 9.7 mg/dL (8.6-10.3); Carbon Dioxide 32 mEq/L (23-29); Chloride 96 mEq/L (98-107); Globulin 2.6 g/dL (2.4-3.5); Glucose 117 mg/dL (70-105); Magnesium 1.6 mg/dL (1.6-2.6); Osmolality,Calculated 280 (280-300); Phosphorous 3.5 mg/dL (2.7-4.5); Potassium 4.7 mEq/L (3.5-5.1); Sodium 133 mEq/L (136-145); Total Protein 6.4 g/dL (6.4-8.9); eGFR For Non-African Americans 34 (> 60)
[2018-06-22] MEDS ORDERED: 0.9 % Sodium Chloride 1,000 ML IVC ONE (21:17)
[2018-06-22] MEDS ORDERED: 0.9 % Sodium Chloride 1,000 ML ONE (21:18)
[2018-06-22] MEDS ORDERED: *HR* OxyCODONE ER (12 HR) 10 MG TABLET PO ONE (22:01)
[2018-06-22 23:21] LABS: Bilirubin,Urine Negative (Negative); Blood,Urine Negative (Negative); Clarity,Urine Clear (Clear); Color,Urine Yellow (Yellow); Glucose,Urine (UA) Normal (Normal); Ketones,Urine Negative (Negative); Leukocyte Esterase,Urine Negative (Negative); Nitrite,Urine Negative (Negative); PH,Urine 5.5 pH Units (5.0-8.0); Protein,Urine Negative (Neg-Trace); Specific Gravity,Urine 1.015 (1.010-1.025); Urobilinogen,Urine Normal (Normal)
[2018-06-22] MEDS ORDERED: Doxycycline 100 MG CAPSULE PO ONE (23:28)
[2018-06-22] MEDS ORDERED: Ampicillin/Sulbactam 1,500 MG in 0.9 % Sodium Chloride Mini Bag 100 ML IVPB ONE (23:52)
[2018-06-23] MEDS ORDERED: Ipratropium/Albuterol Neb 3 ML IH PRN (01:32)
[2018-06-23] MEDS ORDERED: *HR* Dextrose 50 % in Water (Syg) 50 ML SYRINGE IVP PRN (01:36)
[2018-06-23] MEDS ORDERED: Dextrose Gel 15 GM/37.5 ML TUBE PO PRN ×2 (01:36)
[2018-06-23] MEDS ORDERED: 0.9 % Sodium Chloride 1,000 ML IVC SCH (01:45)
--- NOTE | 2018-06-23 03:08 | Internal Med History&Physical ---
Date of Encounter: 06/23/18 Time of Encounter: 03:04 Internal Medicine - H&P: HPI Chief complaint: leg pain Admitted From: Home Plans for Post Hospital Care: Home History of present illness: Ghazala Uribe is a 63 year old woman with metastatic melanoma and was diagnosed in 2005 with recurrent disease developing in 2010 now having extensive disease involving the brain, groin and lungs that progressed despite radiation and chemotherapy. She was admitted here recently for sepsis due to a left foot ulcer with cultures revealing of P. aeruginosa and MSSA. After receiving empiric antibiotics she was discharged to home hospice on 06/13 to complete a course with levofloxacin. She is brought back into the ER by her clicking machine operator care who stated that she seemed a bit more confused than normal as she was looking for things and unable to find items and being somewhat disoriented. It was stated that this was similar to her prior presentation which cause concern and t herefore was brought in. There was concern for ongoing cellulitic changes and was given doxycycline and an amp/sulbactam in the emergency room. Her labs are grossly unremarkable other than an elevation in her serum creatinine. The family expressed concern to the emergency room staff with the discomfort in taking the patient home therefore she is admitted for observation. It does not appear there is understanding as to what home hospice entails. She reports null improvement in her leg symptoms while on levofloxacin but completed the prescribed course. Past Med Surg Social Fam HX - Past Medical History Medical history: cancer, COPD, diabetes, hypertension, kidney stones, thyroid disease Additional medical history: Melanoma Psychiatric history: anxiety - Past Surgical History Surgical History: appendectomy, knee replacement, other Additional surgical history: lemon fusion. brain surgery-tumor - Social History Smoking Status: Former smoker Smokeless Tobacco Status: No Alcohol use: none Drug use: none Internal Medicine - H&P: Meds Albuterol Sulfate [Albuterol Inhaler] 2 puff IH Q4HR PRN 01/10/15 [History] Allopurinol [Zyloprim] 100 mg PO BID 01/10/15 [History] Furosemide [Lasix] 80 mg PO DAILY 01/10/15 [History] Fluticasone Propionate [Flovent Hfa] 220 mcg IH BID PRN 02/02/16 [History] Levothyroxine Sodium [Synthroid] 200 mcg PO DAILY 04/09/17 [History] Omeprazole [PriLOSEC] 20 mg PO BID 04/09/17 [History] levETIRAcetam [Keppra] 750 mg PO BID #90 tablet 04/11/17 [Rx] Insulin ASPART [NovoLOG] 0 unit SQ TIDWM 07/10/17 [History] Insulin DETEMIR [Levemir] 24 unit SQ DAILY 07/10/17 [History] Metformin HCl [Glucophage] 1,000 mg PO BID 07/10/17 [History] Amitriptyline [Elavil] 50 mg PO HS #90 tablet 02/06/18 [Rx] Gabapentin [Neurontin] 800 mg PO TID #90 tablet 06/01/18 [Rx] OxyCODONE ER (12 HR) [OxyCONTIN] 20 mg PO Q12HR 30 Days #60 tab.er.12h 06/04/18 [Rx] OxyCODONE Immed Rel [Roxicodone 10 MG] 10 - 20 mg PO Q4H PRN 30 Days #360 tab 06/04/18 [Rx] Promethazine [Phenergan] 25 mg PO Q6HR PRN #60 tablet 06/04/18 [Rx] Citalopram Hydrobromide [Celexa] 20 mg PO DAILY #0 06/13/18 [Rx] DiphenhydraMINE 50 mg PO HS 06/23/18 [History] Melatonin 10 mg PO HS 06/23/18 [History] Allergy/AdvReac Type Severity Reaction Status Date / Time No Known Allergies Allergy Verified 04/21/18 09:16 All Systems PM: A 10-system review of systems was performed and is negative for pertinent findings except as documented above in the HPI. Family history reviewed and noncontributory. - Constitutional Vitals: Temp Pulse Resp BP Pulse Ox 98.9 F 105 18 144/76 99 06/23/18 02:08 06/23/18 02:08 06/23/18 02:08 06/23/18 02:08 06/23/18 02:08 Exam: Vitals: Reviewed General: Obese white woman lying in bed in NAD Skin: Pale, warm, dry. HEENT: Moist mucous membranes.(+) conjunctivae pallor. Neck: No JVD. No carotid bruits. No palpable thyroid. Chest: Normal thoracic expansion. Normal breath sounds. Clear to auscultation. Heart: Normal S1 & S2; rhythmic. No rubs or murmurs. Abdomen: Non-distended, soft and non-tender to palpation. No peritoneal reaction. Extremities: Left leg circumferentially larger than the right, erythematous with pitting edema and skin dimpling; 2cm ulcer on the dorsum of the left foot with a yellow base but no active suppuration. Neurological: Awake, alert and oriented to person, place and time. No focal deficits. Psych: Affect appropriate. Internal Med - H&P Results - Labs CBC & Chem 7: 06/22/18 20:27 06/22/18 20:27 Labs: Short CBC 06/22/18 Range/Units 20:27 WBC 7.0 (4.3-11.1) K/mcL Hgb 8.0 L (11.5-15.4) g/dL Hct 26.0 L (35.3-44.9) % Plt Count 114 L (140-400) K/mcL Neutrophils # 5.7 (1.6-8.9) K/mcL BMP 06/22/18 20:27 Sodium 133 L Potassium 4.7 Chloride 96 L Carbon Dioxide 32 H BUN 20 Creatinine 1.56 H Glucose 117 H Calcium 9.7 Cardiac Enzymes 06/22/18 Range/Units 20:27 Troponin I < 0.03 (< 0.04) ng/mL Liver Function 06/22/18 Range/Units 20:27 Total Bilirubin 0.3 (0.3-1.0) mg/dL Direct Bilirubin 0.0 (0.0-0.2) mg/dL AST 8 L (13-39) Units/L ALT 5 L (7-52) Units/L Alkaline Phosphatase 50 (34-104) Units/L Albumin 3.8 (3.5-5.7) g/dL Urine 06/22/18 Range/Units 23:04 Urine Color Yellow (Yellow) Urine Clarity Clear (Clear) Urine pH 5.5 (5.0-8.0) pH Units Ur Specific [place] 1.015 (1.010-1.025) Urine Protein Negative (Neg-Trace) mg/dL Urine Glucose (UA) Normal (Normal) mg/dL - ABG Interpretation ABG results: 06/22/18 20:38 VBG pH 7.41 VBG pCO2 51 VBG pO2 43 VBG HCO3 32 H - Impressions ITS Impressions Chest X-Ray 06/22/18 19:24 IMPRESSION: No evidence of acute cardiopulmonary disease. Nodule like area in the left lateral lung base suspicious for metastatic disease. D/ / Angel Baird MD / Angel Baird MD Interpreting Provider: Angel Baird MD - Assessment and plan (1) Cellulitis Current Visit: Yes Status: Acute Assessment and plan: Significant inflammatory changes noted. Amp/sulbactam administered in the ER does not cover Pseudomonas. Will start cefepime 2grs q8hrs that retains activity against MSSA as well as Pseudomonas. Check doppler of lower extremity to rule out DVT given the significant swelling. Leg elevation at all times. Qualifiers: Site of cellulitis: extremity Site of cellulitis of extremity: lower extremity Laterality: left Qualified Code(s): L03.116 - Cellulitis of left lower limb (2) ERIC (acute kidney injury) Current Visit: Yes Status: Acute Assessment and plan: Will continue fluid resuscitation and repeat BMP in the morning. (3) Altered mental status Current Visit: Yes Status: Acute Assessment and plan: Patient seems to be at her baseline at this time and not warranting further intervention. Qualifiers: Altered mental status type: disorientation Qualified Code(s): R41.0 - Disorientation, unspecified (4) Anemia Current Visit: Yes Status: Chronic Assessment and plan: Of chronic disease. Continue supplementation as needed. Qualifiers: Anemia type: unspecified type Qualified Code(s): D64.9 - Anemia, unspecified (5) Diabetes mellitus Current Visit: Yes Status: Chronic Assessment and plan: Will place on insulin sliding scale. Qualifiers: Diabetes mellitus type: type 2 Diabetes mellitus terminal system operator insulin use: with terminal system operator use Diabetes mellitus complication status: with hyperglycemia Qualified Code(s): E11.65 - Type 2 diabetes mellitus with hyperglycemia; Z79.4 - truck terminal manager (current) use of insulin (6) Metastatic melanoma Current Visit: Yes Status: Chronic Assessment and plan: Will continue to follow with oncology. Prognosis poor. Signed papers to be DNR/CCA/DNI during admission last week and placed on home hospice care. operations manager/coordinator to follow up. - Time Spent With Patient Total time spent is greater than 50% in coordination of care (as documented) at patient's floor/unit and/or counseling patient: Greater than 35 minutes
[2018-06-23] MEDS: Insulin LISPRO 300 UNITS/3 ML VIAL SQ SCH ×5 (03:13→21:05)
[2018-06-23] MEDS: Melatonin 3 MG TABLET PO SCH ×2 (03:33→21:04)
[2018-06-23 05:08] LABS: Calcium 8.8 mg/dL (8.6-10.3); Potassium 4.4 mEq/L (3.5-5.1)
[2018-06-23] MEDS: *HR* Heparin 5,000 UNIT/ML VIAL SQ SCH ×2 (06:15→13:58)
[2018-06-23] MEDS: *HR* OxyCODONE ER (12 HR) 20 MG TABLET PO SCH ×2 (06:15→17:55)
[2018-06-23] MEDS ORDERED: Cefepime HCl 2,000 MG in Water for inj. (sterile) 20 ML 20 ML IVPB SCH (08:00)
--- NOTE | 2018-06-23 09:04 | Event Note ---
Date of Encounter: 06/23/18 Time of Encounter: 09:03 seen and examined by hospitalist earlier this am. Patient was recently discharged after being treated for sepsis and cellulitis-she did complete antibiotic treatment however returns with confusion and concern for cellulitis she was started on IV cefepime. Due to failure of outpatient treatment patient will be switched to inpatient status. Also patient is bedbound and has a history of malignancy high risk for DVT we will obtain venous Doppler of left lower extremity 1737-notified per vascular attack very difficult imaging due to tumors scarlike tissues and edema left distal iliac vein S at the mid and distal and upper Vessels were unable to be imaged. Left CFV appears only partially compressible strange texture inside [place] in appearance he appears to have flow through it. Tach cannot rule out the possibility of acute DVT at this location yet cannot confirm DVT due to other possibilities. I did discuss this with attending we will initiate patient on anticoagulation if family and patient agreed. Discussed with case work aide concerning Alquist versus Coumadin. financial risk manager did speak with [facility] he states that this will not be covered by hospice the Coumadin would be. Also the patient INR must be therapeutic prior to discharge Discussed risk and benefits of anticoagulation with the patient and family who are at bedside-sister and niece-discussed Coumadin and heparin bridging verbalized understanding and discussed with POA. Family expressed that they would like patient to be started on heparin with Coumadin bridge.
[2018-06-23] MEDS: levETIRAcetam 250 MG TABLET PO SCH ×2 (09:08→21:04)
[2018-06-23] MEDS: Gabapentin 400 MG CAPSULE PO SCH ×3 (09:08→21:03)
[2018-06-23] MEDS: (Incruse Ellipta] 62.5 MCG) IH SCH (09:10)
[2018-06-23] MEDS: Insulin DETEMIR 100 UNIT/ML X5UNITS SQ SCH (11:32)
[2018-06-23] MEDS: *HR* OxyCODONE Immed Rel 5 MG TABLET PO PRN (13:58)
[2018-06-23 15:59] LABS: Calcium 9.2 mg/dL (8.6-10.3); Potassium 4.5 mEq/L (3.5-5.1)
--- NOTE | 2018-06-23 17:40 | Electrocardiograph Report ---
[place] [id number] Test Date: 2018-06-22 Pat Name: Ghazala Uribe Department: [id number] Room: 3B37 Gender: F Credit Portfolio Manager: : 1955 Requested By: Fabiana Jean Baptiste Order Number: [id number] Reading MD: Sandy Gramajo Measurements Intervals [place] Rate: 93 P: 37 MD: 217 QRS: 91 QRSD: 144 T: 44 QT: 391 QTc: 487 Interpretive Statements Sinus rhythm Prolonged MD interval Right bundle branch block Electronically Signed On 06-23-2018 17:38:51 EST by Sandy Gramajo
[2018-06-23] MEDS ORDERED: *HR* Heparin 5,000 UNIT/ML VIAL IVP PRN (17:42)
[2018-06-23] MEDS ORDERED: *HR* Heparin 5,000 UNIT/ML VIAL IVP ONE (17:42)
[2018-06-23] MEDS ORDERED: Warfarin perPT PO PRN (18:00)
[2018-06-23] MEDS: Heparin 25,000 UNIT/500 ML D5W 25,000 UNIT/500 ML BAG IVC SCH (18:40)
[2018-06-23 20:21] LABS: Hematocrit 26.5 % (35.3-44.9); Mean Corpuscular HGB Conc 30.2 g/dL (31.6-35.5); Mean Corpuscular Hemoglobin 28.2 pg (28.0-33.3); Mean Corpuscular Volume 93.3 fL (83.0-100.0); Mean Platelet Volume 10.3 fL (9.4-12.4); Platelet Count 106 K/mcL (140-400); Red Blood Count 2.84 M/mcL (3.82-4.97); Red Cell Distribution Width 14.7 % (11.5-14.5)
[2018-06-23 20:30] LABS: INR 1.3; Prothrombin Time 15.1 Seconds (9.4-12.1)
[2018-06-23 20:42] LABS: Heparin anti-factor XA UFH 1.3 IU/mL (0.30-0.70)
[2018-06-23] MEDS ORDERED: *HR* Warfarin 5 MG TABLET PO ONE (20:47)
[2018-06-23] MEDS: Cefepime HCl 2,000 MG in Water for inj. (sterile) 20 ML 20 ML IVPB SCH (21:04)
[2018-06-23] MEDS: Lactobacillus 1 EACH CAP.SPRINK PO SCH (21:04)
[2018-06-23] MEDS ORDERED: *HR* OxyCODONE ER (12 HR) 10 MG TABLET PO ONE (22:01)
[2018-06-24 05:15] LABS: INR 1.2; Prothrombin Time 13.8 Seconds (9.4-12.1)
[2018-06-24] MEDS: *HR* OxyCODONE ER (12 HR) 20 MG TABLET PO SCH ×2 (05:40→18:56)
[2018-06-24] MEDS: *HR* Heparin 5,000 UNIT/ML VIAL IVP PRN ×3 (05:40→22:08)
[2018-06-24] MEDS: Insulin LISPRO 300 UNITS/3 ML VIAL SQ SCH ×4 (08:12→21:52)
[2018-06-24] MEDS ORDERED: [UNRECOGNIZED DRUG - OTHER] PO SCH (09:00)
[2018-06-24] MEDS: levETIRAcetam 250 MG TABLET PO SCH ×2 (09:51→20:29)
[2018-06-24] MEDS: Lactobacillus 1 EACH CAP.SPRINK PO SCH ×2 (09:51→20:29)
[2018-06-24] MEDS: Gabapentin 400 MG CAPSULE PO SCH ×3 (09:51→20:31)
[2018-06-24] MEDS: Insulin DETEMIR 100 UNIT/ML X5UNITS SQ SCH (09:51)
[2018-06-24] MEDS: (Incruse Ellipta] 62.5 MCG) IH SCH (09:52)
[2018-06-24] MEDS: Cefepime HCl 2,000 MG in Water for inj. (sterile) 20 ML 20 ML IVPB SCH ×2 (09:52→20:14)
[2018-06-24] MEDS ORDERED: MOMETASONE FUROATE 100 mcg Inhaler IH PRN (10:00)
--- NOTE | 2018-06-24 10:57 | Internal Med Progress Note ---
Hospitalist Progress Note - Encounter Date of Encounter: 06/24/18 Time of Encounter: 10:55 - Subjective Interval History: Patient seen and examined in the room, she has no fever, chills, night sweats. - Exam Vitals: Temp Pulse Resp BP Pulse Ox 98.5 F 89 16 109/65 92 06/24/18 07:36 06/24/18 07:36 06/24/18 07:36 06/24/18 07:36 06/24/18 07:36 Exam: Vitals: Reviewed General: Obese white woman lying in bed in NAD Skin: Pale, warm, dry. HEENT: Moist mucous membranes.(+) conjunctivae pallor. Neck: No JVD. No carotid bruits. No palpable thyroid. Chest: Normal thoracic expansion. Normal breath sounds. Clear to auscultation. Heart: Normal S1 & S2; rhythmic. No rubs or murmurs. Abdomen: Non-distended, soft and non-tender to palpation. No peritoneal reac tion. Extremities: Left leg circumferentially larger than the right, erythematous with pitting edema and skin dimpling; 2cm ulcer on the dorsum of the left foot with a yellow base but no active suppuration. Neurological: Awake, alert and oriented to person, place and time. No focal deficits. Psych: Affect appropriate. - Assessment and Plan (1) DVT (deep venous thrombosis) Current Visit: Yes Status: Acute Assessment and Plan: Venous Doppler ultrasound showed suspicious DVT. Patient started on heparin drip, reaching to oral Coumadin. INR today subtherapeutic. Pharmacy to dose Coumadin. Once therapeutic, patient will be discharged home with home hospice. (2) Metastatic melanoma Current Visit: Yes Status: Chronic Assessment and Plan: 06/23 continue to follow with oncology. Prognosis poor. Signed papers to be DNR/CCA/DNI during admission last week and placed on home hospice care. it support manager to follow up. 06/24 Patient was on home hospice prior to admission. Both patient and family wish going home with home hospice. Patient already on seizure precaution due to brain metastases. No signs of intracranial hypertension. Anticipated discharge home with home hospice once INR therapeutic. (3) Diabetes mellitus Current Visit: Yes Status: Chronic Assessment and Plan: Continue insulin sliding scale. (4) ERIC (acute kidney injury) Current Visit: Yes Status: Acute Assessment and Plan: Patient takes 80 mg Lasix once a day at home. It appears prerenal. Lasix on hold. Creatinine improving. (5) Anemia Current Visit: No Status: Chronic Assessment and Plan: Of chronic disease. Continue supplementation as needed. (6) Altered mental status Current Visit: Yes Status: Acute Assessment and Plan: Patient seems to be at her baseline at this time and not warranting further intervention. (7) Cellulitis Current Visit: Yes Status: Acute Assessment and Plan: 06/23 Significant inflammatory changes noted. Amp/sulbactam administered in the ER jacobs s not cover Pseudomonas. Will start cefepime 2grs q8hrs that retains activity against MSSA as well as Pseudomonas. Check doppler of lower extremity to rule out DVT given the significant swelling. Leg elevation at all times. 06/24 Wound culture grew Staphylococcus aureus and Pseudomonas. Continue IV cefepime. At topical Silvadene once a day. DVT Prophylaxis: Patient on heparin drip. - Time Spent with Patient Total time spent is greater than 50% in coordination of care (as documented) at patient's floor/unit and/or counseling patient: Greater than 35 minutes Plan of Care Discussed with: patient Internal Medicine: Result - Labs CBC & Chem 7: 06/23/18 20:09 06/23/18 15:30 Labs: Short CBC 06/23/18 Range/Units 20:09 WBC 6.0 (4.3-11.1) K/mcL Hgb 8.0 L (11.5-15.4) g/dL Hct 26.5 L (35.3-44.9) % Plt Count 106 L (140-400) K/mcL BMP 06/23/18 15:30 Sodium 137 Potassium 4.5 Chloride 100 Carbon Dioxide 35 H BUN 19 Creatinine 1.41 H Glucose 102 Calcium 9.2 - ABG Interpretation ABG results: PT/INR, D-dimer PT 13.8 Seconds (9.4-12.1) H 06/24/18 04:19 Consult Discharge Plan - Plan Referrals: Dalila Acuña MD [Primary Care Provider] - (Appointment web requested) (1) DVT (deep venous thrombosis) Qualifiers: DVT location: lower extremity Chronicity: unspecified Laterality: left (3) Diabetes mellitus Qualifiers: Diabetes mellitus type: type 2 Diabetes mellitus termite treater helper insulin use: with senior care use Diabetes mellitus complication status: with hyperglycemia Qualified Code(s): E11.65 - Type 2 diabetes mellitus with hyperglycemia; Z79.4 - prison (current) use of insulin (5) Anemia Qualifiers: Anemia type: unspecified type Qualified Code(s): D64.9 - Anemia, unspecified (6) Altered mental status Qualifiers: Altered mental status type: disorientation Qualified Code(s): R41.0 - Disorientation, unspecified (7) Cellulitis Qualifiers: Site of cellulitis: extremity Site of cellulitis of extremity: lower extremity Laterality: left Qualified Code(s): L03.116 - Cellulitis of left lower limb
[2018-06-24] MEDS: *HR* OxyCODONE Immed Rel 5 MG TABLET PO PRN ×2 (11:01→20:44)
[2018-06-24] MEDS: Heparin 25,000 UNIT/500 ML D5W 25,000 UNIT/500 ML BAG IVC SCH (17:11)
[2018-06-24] MEDS ORDERED: *HR* Warfarin 5 MG TABLET PO ONE (18:00)
[2018-06-24] MEDS: Melatonin 3 MG TABLET PO SCH (20:29)
[2018-06-25] MEDS: Heparin 25,000 UNIT/500 ML D5W 25,000 UNIT/500 ML BAG IVC SCH ×3 (06:02→21:35)
[2018-06-25 06:12] LABS: Hematocrit 24.5 % (35.3-44.9); Hemoglobin 7.4 g/dL (11.5-15.4); Mean Corpuscular HGB Conc 30.2 g/dL (31.6-35.5); Mean Corpuscular Hemoglobin 28.1 pg (28.0-33.3); Mean Corpuscular Volume 93.2 fL (83.0-100.0); Mean Platelet Volume 10.3 fL (9.4-12.4); Platelet Count 106 K/mcL (140-400); Red Blood Count 2.63 M/mcL (3.82-4.97); Red Cell Distribution Width 14.7 % (11.5-14.5)
[2018-06-25 06:13] LABS: INR 1.6; Prothrombin Time 17.8 Seconds (9.4-12.1)
[2018-06-25] MEDS: *HR* OxyCODONE ER (12 HR) 20 MG TABLET PO SCH ×2 (06:38→17:27)
[2018-06-25] MEDS: Gabapentin 400 MG CAPSULE PO SCH ×4 (08:00→20:30)
[2018-06-25] MEDS: Lactobacillus 1 EACH CAP.SPRINK PO SCH ×3 (08:00→20:30)
[2018-06-25] MEDS: Insulin DETEMIR 100 UNIT/ML X5UNITS SQ SCH (08:00)
[2018-06-25] MEDS: levETIRAcetam 250 MG TABLET PO SCH ×3 (08:00→20:30)
[2018-06-25] MEDS: Insulin LISPRO 300 UNITS/3 ML VIAL SQ SCH ×4 (08:07→20:31)
[2018-06-25] MEDS: Cefepime HCl 2,000 MG in Water for inj. (sterile) 20 ML 20 ML IVPB SCH ×2 (08:55→20:29)
[2018-06-25] MEDS: (Incruse Ellipta] 62.5 MCG) IH SCH (08:57)
[2018-06-25 09:06] LABS: Calcium 9.1 mg/dL (8.6-10.3); Potassium 4.2 mEq/L (3.5-5.1)
--- NOTE | 2018-06-25 10:57 | Internal Med Progress Note ---
Hospitalist Progress Note - Encounter Date of Encounter: 06/25/18 Time of Encounter: 10:54 - Subjective Interval History: Patient seen and examined in the room, she has no fever, chills, night sweats. c/o left eye blurry vision. No headache, weakness, or numbness. - Exam Vitals: Temp Pulse Resp BP Pulse Ox 98.0 F 90 16 114/70 93 06/25/18 10:46 06/25/18 10:46 06/25/18 10:46 06/25/18 10:46 06/25/18 10:46 Exam: Vitals: Reviewed General: Obese white woman lying in bed in NAD Skin: Pale, warm, dry. HEENT: Moist mucous membranes.(+) conjunctivae pallor. Neck: No JVD. No carotid bruits. No palpable thyroid. Chest: Normal thoracic expansion. Normal breath sounds. Clear to auscultation. Heart: Normal S1 & S2; rhythmic. No rubs or murmurs. Abdomen: Non-distended, soft and non-tender to palpation. No peritoneal reaction. Extremities: Left leg circumferentially larger than the right, erythematous with pitting edema and skin dimpling; 2cm ulcer on the dorsum of the left foot with a yellow base but no active suppuration. Neurological: Awake, alert and oriented to person, place and time. No focal deficits. Psych: Affect appropriate. - Assessment and Plan (1) DVT (deep venous thrombosis) Current Visit: Yes Status: Acute Assessment and Plan: Venous Doppler ultrasound showed suspicious DVT. Patient started on heparin drip, reaching to oral Coumadin. INR today subtherapeutic. Pharmacy to dose Coumadin. Once therapeutic, patient will be discharged home with home hospice. (2) Metastatic melanoma Current Visit: Yes Status: Chronic Assessment and Plan: 06/23 continue to follow with oncology. Prognosis poor. Signed papers to be DNR/CCA/DNI during admission last week and placed on home hospice care. crisis manager to follow up. 06/24 Patient was on home hospice prior to admission. Both patient and family wish going home with home hospice. Patient already on seizure precaution due to brain metastases. No signs of intracranial hypertension. Anticipated discharge home with home hospice once INR therapeutic. 06/25 Repeat MR brain showed large right frontal lesion with wong-mass edema, several other small lesions scattered also noted. Pt also has right eye blurry vision. Decadron was started. At this time, neurology consult was not indicated. (3) Diabetes mellitus Current Visit: Yes Status: Chronic Assessment and Plan: Continue insulin sliding scale. (4) ERIC (acute kidney injury) Current Visit: Yes Status: Acute Assessment and Plan: Patient takes 80 mg Lasix once a day at home. It appears prerenal. Lasix on hold. Creatinine improving. (5) Anemia Current Visit: No Status: Chronic Assessment and Plan: Of chronic disease. Continue supplementation as needed. (6) Altered mental status Current Visit: Yes Status: Acute Assessment and Plan: Patient seems to be at her baseline at this time and not warranting further intervention. (7) Cellulitis Current Visit: Yes Status: Acute Assessment and Plan: 06/23 Significant inflammatory changes noted. Amp/sulbactam administered in the ER d oes not cover Pseudomonas. Will start cefepime 2grs q8hrs that retains activity against MSSA as well as Pseudomonas. Check doppler of lower extremity to rule out DVT given the significant swelling. Leg elevation at all times. 06/24 Wound culture grew Staphylococcus aureus and Pseudomonas. Continue IV cefepime. topical Silvadene once a day. 06/25 continue current treatment. DVT Prophylaxis: Patient on heparin drip. - Time Spent with Patient Total time spent is greater than 50% in coordination of care (as documented) at patient's floor/unit and/or counseling patient: Greater than 35 minutes Plan of Care Discussed with: patient Internal Medicine: Result - Labs CBC & Chem 7: 06/25/18 05:32 06/25/18 05:32 Labs: Short CBC 06/25/18 Range/Units 05:32 WBC 5.2 (4.3-11.1) K/mcL Hgb 7.4 L (11.5-15.4) g/dL Hct 24.5 L (35.3-44.9) % Plt Count 106 L (140-400) K/mcL BMP 06/25/18 05:32 Sodium 136 Potassium 4.2 Chloride 99 Carbon Dioxide 30 H BUN 18 Creatinine 1.49 H Glucose 67 L Calcium 9.1 - ABG Interpretation ABG results: PT/INR, D-dimer PT 17.8 Seconds (9.4-12.1) H 06/25/18 05:32 - Impressions Impressions Brain MRI 06/24/18 17:36 IMPRESSION: Limited noncontrast study. No acute infarct. Mild subcortical signal abnormality within the high left frontoparietal lobe which may be due to underlying brain metastases. Recommend repeating exam with IV contrast if feasible. D/ / Scotty Stevens MD / Scotty Stevens MD Interpreting Provider: Scotty Stevens MD Consult Discharge Plan - Plan Referrals: Dalila Acuña MD [Primary Care Provider] - 06/29/18 10:45 am (Appointment web requested) (1) DVT (deep venous thrombosis) Qualifiers: DVT location: lower extremity Chronicity: unspecified Laterality: left (3) Diabetes mellitus Qualifiers: Diabetes mellitus type: type 2 Diabetes mellitus fci insulin use: with fci use Diabetes mellitus complication status: with hyperglycemia Qualified Code(s): E11.65 - Type 2 diabetes mellitus with hyperglycemia; Z79.4 - continuous churn buttermaker (current) use of insulin (5) Anemia Qualifiers: Anemia type: unspecified type Qualified Code(s): D64.9 - Anemia, unspecified (6) Altered mental status Qualifiers: Altered mental status type: disorientation Qualified Code(s): R41.0 - Disorientation, unspecified (7) Cellulitis Qualifiers: Site of cellulitis: extremity Site of cellulitis of extremity: lower extremity Laterality: left Qualified Code(s): L03.116 - Cellulitis of left lower limb
[2018-06-25] MEDS: Silver Sulfadiazine 50 GM TUBE TP SCH (15:28)
[2018-06-25] MEDS ORDERED: *HR* Warfarin 5 MG TABLET PO ONE (18:00)
[2018-06-25] MEDS ORDERED: Acetaminophen 325 MG TABLET PO ONE (21:00)
[2018-06-25] MEDS: Melatonin 3 MG TABLET PO SCH (21:16)
[2018-06-26 04:42] LABS: Hematocrit 23.4 % (35.3-44.9); Hemoglobin 7.5 g/dL (11.5-15.4); Mean Corpuscular HGB Conc 32.1 g/dL (31.6-35.5); Mean Corpuscular Hemoglobin 28.6 pg (28.0-33.3); Mean Corpuscular Volume 89.3 fL (83.0-100.0); Platelet Count 101 K/mcL (140-400); Red Blood Count 2.62 M/mcL (3.82-4.97); Red Cell Distribution Width 14.5 % (11.5-14.5)
[2018-06-26 04:55] LABS: Calcium 9.1 mg/dL (8.6-10.3); Potassium 4.8 mEq/L (3.5-5.1)
[2018-06-26 04:58] LABS: INR 2.7; Prothrombin Time 30.5 Seconds (9.4-12.1)
[2018-06-26] MEDS: *HR* OxyCODONE ER (12 HR) 20 MG TABLET PO SCH ×2 (06:00→16:54)
[2018-06-26] MEDS: Lactobacillus 1 EACH CAP.SPRINK PO SCH ×2 (08:19→20:46)
[2018-06-26] MEDS: *HR* OxyCODONE Immed Rel 5 MG TABLET PO PRN (08:20)
[2018-06-26] MEDS: Gabapentin 400 MG CAPSULE PO SCH ×3 (08:21→20:46)
[2018-06-26] MEDS: levETIRAcetam 250 MG TABLET PO SCH ×2 (08:22→20:45)
[2018-06-26] MEDS: Cefepime HCl 2,000 MG in Water for inj. (sterile) 20 ML 20 ML IVPB SCH (08:22)
[2018-06-26] MEDS: (Incruse Ellipta] 62.5 MCG) IH SCH (08:23)
[2018-06-26] MEDS: Insulin DETEMIR 100 UNIT/ML X5UNITS SQ SCH (08:24)
[2018-06-26] MEDS: Silver Sulfadiazine 50 GM TUBE TP SCH (08:24)
[2018-06-26] MEDS: Insulin LISPRO 300 UNITS/3 ML VIAL SQ SCH ×4 (08:25→20:47)
--- NOTE | 2018-06-26 11:45 | Internal Med Progress Note ---
Hospitalist Progress Note - Encounter Date of Encounter: 06/26/18 Time of Encounter: 11:43 - Subjective Interval History: Patient seen and examined in the room, she has no fever, chills, night sweats. No headache, weakness, or numbness. - Exam Vitals: Temp Pulse Resp BP Pulse Ox 97.8 F 83 16 114/66 98 06/26/18 11:35 06/26/18 11:35 06/26/18 11:35 06/26/18 11:35 06/26/18 11:35 Exam: Vitals: Reviewed General: Obese white woman lying in bed in NAD Skin: Pale, warm, dry. HEENT: Moist mucous membranes.(+) conjunctivae pallor. Neck: No JVD. No carotid bruits. No palpable thyroid. Chest: Normal thoracic expansion. Normal breath sounds. Clear to auscultation. Heart: Normal S1 & S2; rhythmic. No rubs or murmurs. Abdomen: Non-distended, soft and non-tender to palpation. No peritoneal reaction. Extremities: Left leg circumferentially larger than the right, erythematous with pitting edema and skin dimpling; 2cm ulcer on the dorsum of the left foot with a yellow base but no active suppuration. Neurological: Awake, alert and oriented to person, place and time. No focal deficits. Psych: Affect appropriate. - Assessment and Plan (1) DVT (deep venous thrombosis) Current Visit: Yes Status: Acute Assessment and Plan: Venous Doppler ultrasound showed suspicious DVT. Patient started on heparin drip, reaching to oral Coumadin. INR today subtherapeutic. Pharmacy to dose Coumadin. Once therapeutic, patient will be discharged home with home hospice. INR today is therapeutic, heparin gtt tx'ed. pharmacy to dose coumadin. (2) Metastatic melanoma Current Visit: Yes Status: Chronic Assessment and Plan: 06/23 continue to follow with oncology. Prognosis poor. Signed papers to be DNR/CCA/DNI during admission last week and placed on home hospice care. system manager to follow up. 06/24 Patient was on home hospice prior to admission. Both patient and family wish going home with home hospice. Patient already on seizure precaution due to brain metastases. No signs of intracranial hypertension. Anticipated discharge home with home hospice once INR therapeutic. 06/25 Repeat MR brain showed large right frontal lesion with wong-mass edema, several other small lesions scattered also noted. Pt also has right eye blurry vision. Decadron was started. At this time, neurology consult was not indicated. 06/26 Pt c/o hallucination, may start seroquel. (3) Diabetes mellitus Current Visit: Yes Status: Chronic Assessment and Plan: Continue insulin sliding scale. (4) ERIC (acute kidney injury) Current Visit: Yes Status: Acute Assessment and Plan: Patient takes 80 mg Lasix once a day at home. It appears prerenal. Lasix on hold. Creatinine improving. (5) Anemia Current Visit: No Status: Chronic Assessment and Plan: Of chronic disease. Continue supplementation as needed. (6) Altered mental status Current Visit: Yes Status: Acute Assessment and Plan: Patient seems to be at her baseline at this time and not warranting further intervention. (7) Cellulitis Current Visit: Yes Status: Acute Assessment and Plan: 06/23 Significant inflammatory changes noted. Amp/sulbactam administered in the ER does not cover Pseudomonas. Will start cefepime 2grs q8hrs that retains activity against MSSA as well as Ps eudomonas. Check doppler of lower extremity to rule out DVT given the significant swelling. Leg elevation at all times. 06/24 Wound culture grew Staphylococcus aureus and Pseudomonas. Continue IV cefepime. topical Silvadene once a day. 06/25 continue current treatment. 06/26 Dc'ed IV abx, started on Levaquin oral based on sensitivity results. DVT Prophylaxis: on Coumadin. - Time Spent with Patient Total time spent is greater than 50% in coordination of care (as documented) at patient's floor/unit and/or counseling patient: Greater than 35 minutes Internal Medicine: Result - Labs CBC & Chem 7: 06/26/18 04:17 06/26/18 04:17 Labs: Short CBC 06/26/18 Range/Units 04:17 WBC 4.4 (4.3-11.1) K/mcL Hgb 7.5 L (11.5-15.4) g/dL Hct 23.4 L (35.3-44.9) % Plt Count 101 L (140-400) K/mcL BMP 06/26/18 04:17 Sodium 131 L Potassium 4.8 Chloride 97 L Carbon Dioxide 29 BUN 19 Creatinine 1.33 H Glucose 232 H Calcium 9.1 - ABG Interpretation ABG results: PT/INR, D-dimer PT 30.5 Seconds (9.4-12.1) H D 06/26/18 04:17 Consult Discharge Plan - Plan Referrals: Dalila Acuña MD [Primary Care Provider] - 06/29/18 10:45 am () (1) DVT (deep venous thrombosis) Qualifiers: DVT location: lower extremity Chronicity: unspecified Laterality: left (3) Diabetes mellitus Qualifiers: Diabetes mellitus type: type 2 Diabetes mellitus manufacturing planner insulin use: with manufacturing planner use Diabetes mellitus complication status: with hyperglycemia Qualified Code(s): E11.65 - Type 2 diabetes mellitus with hyperglycemia; Z79.4 - disk grinder (current) use of insulin (5) Anemia Qualifiers: Anemia type: unspecified type Qualified Code(s): D64.9 - Anemia, unspecified (6) Altered mental status Qualifiers: Altered mental status type: disorientation Qualified Code(s): R41.0 - Disorientation, unspecified (7) Cellulitis Qualifiers: Site of cellulitis: extremity Site of cellulitis of extremity: lower extremity Laterality: left Qualified Code(s): L03.116 - Cellulitis of left lower limb
[2018-06-26] MEDS: levoFLOXacin 750 MG TABLET PO SCH (13:00)
[2018-06-26] MEDS: Melatonin 3 MG TABLET PO SCH (20:46)
[2018-06-27 03:33] LABS: Hemoglobin 7.6 g/dL (11.5-15.4); Mean Corpuscular HGB Conc 31.7 g/dL (31.6-35.5); Mean Corpuscular Hemoglobin 27.8 pg (28.0-33.3); Mean Corpuscular Volume 87.9 fL (83.0-100.0); Mean Platelet Volume 10.2 fL (9.4-12.4); Platelet Count 113 K/mcL (140-400); Red Blood Count 2.73 M/mcL (3.82-4.97); Red Cell Distribution Width 14.6 % (11.5-14.5)
[2018-06-27 03:41] LABS: INR 2.4; Prothrombin Time 26.9 Seconds (9.4-12.1)
[2018-06-27 03:51] LABS: Calcium 9.2 mg/dL (8.6-10.3); Potassium 5.2 mEq/L (3.5-5.1)
[2018-06-27] MEDS: *HR* OxyCODONE ER (12 HR) 20 MG TABLET PO SCH ×2 (06:11→18:14)
--- NOTE | 2018-06-27 09:29 | Internal Med Progress Note ---
Hospitalist Progress Note - Encounter Date of Encounter: 06/27/18 Time of Encounter: 09:27 - Subjective Interval History: Patient seen and examined in the room, she has no fever, chills, night sweats. No headache, weakness, or numbness. - Exam Vitals: Temp Pulse Resp BP Pulse Ox 97.2 F L 88 19 136/75 97 06/27/18 07:24 06/27/18 07:24 06/27/18 07:24 06/27/18 07:24 06/27/18 07:24 Exam: Vitals: Reviewed General: Obese white woman lying in bed in NAD Skin: Pale, warm, dry. HEENT: Moist mucous membranes.(+) conjunctivae pallor. Neck: No JVD. No carotid bruits. No palpable thyroid. Chest: Normal thoracic expansion. Normal breath sounds. Clear to auscultation. Heart: Normal S1 & S2; rhythmic. No rubs or murmurs. Abdomen: Non-distended, soft and non-tender to palpation. No peritoneal reaction. Extremities: Left leg circumferentially larger than the right, erythematous with pitting edema and skin dimpling; 2cm ulcer on the dorsum of the left foot with a yellow base but no active suppuration. Neurological: Awake, alert and oriented to person, place and time. No focal deficits. Psych: Affect appropriate. - Assessment and Plan (1) DVT (deep venous thrombosis) Current Visit: Yes Status: Acute Assessment and Plan: Venous Doppler ultrasound showed suspicious DVT. INR today is therapeutic, 2.4, pharmacy to dose coumadin. will transfer to hospice next week. (2) Metastatic melanoma Current Visit: Yes Status: Chronic Assessment and Plan: 06/23 continue to follow with oncology. Prognosis poor. Signed papers to be DNR/CCA/DNI during admission last week and placed on home hospice care. manager of internal audit to follow up. 06/24 Patient was on home hospice prior to admission. Both patient and family wish going home with home hospice. Patient already on seizure precaution due to brain metastases. No signs of intracranial hypertension. Anticipated discharge home with home hospice once INR therapeutic. 06/25 Repeat MR brain showed large right frontal lesion with wong-mass edema, several other small lesions scattered also noted. Pt also has right eye blurry vision. Decadron was started. At this time, neurology consult was not indicated. 06/26 Pt c/o hallucination, may start seroquel. 06/27 Low Na and Cl, dehydration suspected, started on IVF. (3) Diabetes mellitus Current Visit: Yes Status: Chronic Assessment and Plan: Continue insulin sliding scale. Basal insulin dose increased due to high BG, decradron started yesterday. (4) ERIC (acute kidney injury) Current Visit: Yes Status: Acute Assessment and Plan: Patient takes 80 mg Lasix once a day at home. It appears prerenal. Lasix on hold. Creatinine improving. (5) Anemia Current Visit: No Status: Chronic Assessment and Plan: Of chronic disease. Continue supplementation as needed. (6) Altered mental status Current Visit: Yes Status: Acute Assessment and Plan: Patient seems to be at her baseline at this time and not warranting further inte rvention. (7) Cellulitis Current Visit: Yes Status: Acute Assessment and Plan: 06/23 Significant inflammatory changes noted. Amp/sulbactam administered in the ER does not cover Pseudomonas. Will start cefepime 2grs q8hrs that retains activity against MSSA as well as Pseudomonas. Check doppler of lower extremity to rule out DVT given the significant swelling. Leg elevation at all times. 06/24 Wound culture grew Staphylococcus aureus and Pseudomonas. Continue IV cefepime. topical Silvadene once a day. 06/25 continue current treatment. 06/26 Dc'ed IV abx, started on Levaquin oral based on sensitivity results. 06/27 continue current treatment. DVT Prophylaxis: on Coumadin. - Time Spent with Patient Total time spent is greater than 50% in coordination of care (as documented) at patient's floor/unit and/or counseling patient: Greater than 35 minutes Plan of Care Discussed with: patient Internal Medicine: Result - Labs CBC & Chem 7: 06/27/18 03:15 06/27/18 03:15 Labs: Short CBC 06/27/18 Range/Units 03:15 WBC 5.9 (4.3-11.1) K/mcL Hgb 7.6 L (11.5-15.4) g/dL Hct 24.0 L (35.3-44.9) % Plt Count 113 L (140-400) K/mcL BMP 06/27/18 03:15 Sodium 130 L Potassium 5.2 H Chloride 95 L Carbon Dioxide 29 BUN 26 H Creatinine 1.20 Glucose 259 H Calcium 9.2 - ABG Interpretation ABG results: PT/INR, D-dimer PT 26.9 Seconds (9.4-12.1) H 06/27/18 03:15 Consult Discharge Plan - Plan Referrals: Dalila Acuña MD [Primary Care Provider] - 06/29/18 10:45 am () (1) DVT (deep venous thrombosis) Qualifiers: DVT location: lower extremity Chronicity: unspecified Laterality: left (3) Diabetes mellitus Qualifiers: Diabetes mellitus type: type 2 Diabetes mellitus mcfp insulin use: with mcfp use Diabetes mellitus complication status: with hyperglycemia Qualified Code(s): E11.65 - Type 2 diabetes mellitus with hyperglycemia; Z79.4 - [facility] (current) use of insulin (5) Anemia Qualifiers: Anemia type: unspecified type Qualified Code(s): D64.9 - Anemia, unspecified (6) Altered mental status Qualifiers: Altered mental status type: disorientation Qualified Code(s): R41.0 - Disorientation, unspecified (7) Cellulitis Qualifiers: Site of cellulitis: extremity Site of cellulitis of extremity: lower extremity Laterality: left Qualified Code(s): L03.116 - Cellulitis of left lower limb
[2018-06-27] MEDS: levETIRAcetam 250 MG TABLET PO SCH ×2 (09:46→20:27)
[2018-06-27] MEDS: levoFLOXacin 750 MG TABLET PO SCH (09:47)
[2018-06-27] MEDS: Lactobacillus 1 EACH CAP.SPRINK PO SCH ×2 (09:47→20:28)
[2018-06-27] MEDS: Gabapentin 400 MG CAPSULE PO SCH ×3 (09:47→20:27)
[2018-06-27] MEDS: Insulin LISPRO 300 UNITS/3 ML VIAL SQ SCH ×4 (09:50→20:25)
[2018-06-27] MEDS: (Incruse Ellipta] 62.5 MCG) IH SCH (10:25)
[2018-06-27] MEDS: Silver Sulfadiazine 50 GM TUBE TP SCH (10:25)
[2018-06-27] MEDS: 0.9 % Sodium Chloride 1,000 ML IVC SCH ×2 (10:25→20:31)
[2018-06-27] MEDS: *HR* OxyCODONE Immed Rel 5 MG TABLET PO PRN ×2 (12:22→20:28)
[2018-06-27] MEDS ORDERED: *HR* Warfarin 2.5 MG TABLET PO ONE (18:00)
[2018-06-27] MEDS: Melatonin 3 MG TABLET PO SCH (20:27)
[2018-06-27] MEDS: Insulin DETEMIR 100 UNIT/ML X5UNITS SQ SCH (20:38)
[2018-06-28 02:48] LABS: Hematocrit 20.2 % (35.3-44.9); Hemoglobin 6.4 g/dL (11.5-15.4); Mean Corpuscular HGB Conc 31.7 g/dL (31.6-35.5); Mean Corpuscular Hemoglobin 28.7 pg (28.0-33.3); Mean Corpuscular Volume 90.6 fL (83.0-100.0); Mean Platelet Volume 9.9 fL (9.4-12.4); Platelet Count 116 K/mcL (140-400); Red Blood Count 2.23 M/mcL (3.82-4.97); Red Cell Distribution Width 14.5 % (11.5-14.5)
[2018-06-28 02:55] LABS: INR 1.7; Prothrombin Time 19.4 Seconds (9.4-12.1)
[2018-06-28 03:06] LABS: Potassium 5.3 mEq/L (3.5-5.1)
[2018-06-28] MEDS: 0.9 % Sodium Chloride 1,000 ML IVC SCH (06:05)
[2018-06-28] MEDS ORDERED: Furosemide 20 MG/2 ML VIAL IVP ONE (07:57)
[2018-06-28] MEDS: Lactobacillus 1 EACH CAP.SPRINK PO SCH ×2 (09:32→20:41)
[2018-06-28] MEDS: Gabapentin 400 MG CAPSULE PO SCH ×3 (09:32→20:42)
[2018-06-28] MEDS: levoFLOXacin 750 MG TABLET PO SCH (09:32)
[2018-06-28] MEDS: levETIRAcetam 250 MG TABLET PO SCH ×2 (09:32→20:41)
[2018-06-28] MEDS: *HR* OxyCODONE ER (12 HR) 20 MG TABLET PO SCH ×2 (09:33→18:17)
--- NOTE | 2018-06-28 09:44 | Internal Med Progress Note ---
Hospitalist Progress Note - Encounter Date of Encounter: 06/28/18 Time of Encounter: 09:42 - Subjective Interval History: Patient seen and examined in the room, she has no fever, chills, night sweats. No headache, weakness, or numbness. - Exam Vitals: Temp Pulse Resp BP Pulse Ox 97.9 F 79 16 148/84 98 06/28/18 08:06 06/28/18 08:06 06/28/18 08:06 06/28/18 08:06 06/28/18 08:06 Exam: Vitals: Reviewed General: Obese white woman lying in bed in NAD Skin: Pale, warm, dry. HEENT: Moist mucous membranes.(+) conjunctivae pallor. Neck: No JVD. No carotid bruits. No palpable thyroid. Chest: Normal thoracic expansion. Normal breath sounds. Clear to auscultation. Heart: Normal S1 & S2; rhythmic. No rubs or murmurs. Abdomen: Non-distended, soft and non-tender to palpation. No peritoneal reaction. Extremities: Left leg circumferentially larger than the right, erythematous with pitting edema and skin dimpling; 2cm ulcer on the dorsum of the left foot with a yellow base but no active suppuration. Neurological: Awake, alert and oriented to person, place and time. No focal deficits. Psych: Affect appropriate. - Assessment and Plan (1) DVT (deep venous thrombosis) Current Visit: Yes Status: Acute Assessment and Plan: Venous Doppler ultrasound showed suspicious DVT. INR today is therapeutic, 1.7, pharmacy to dose coumadin. will transfer to hospice next week. (2) Metastatic melanoma Current Visit: Yes Status: Chronic Assessment and Plan: 06/23 continue to follow with oncology. Prognosis poor. Signed papers to be DNR/CCA/DNI during admission last week and placed on home hospice care. painting manager to follow up. 06/24 Patient was on home hospice prior to admission. Both patient and family wish going home with home hospice. Patient already on seizure precaution due to brain metastases. No signs of intracranial hypertension. Anticipated discharge home with home hospice once INR therapeutic. 06/25 Repeat MR brain showed large right frontal lesion with wong-mass edema, several other small lesions scattered also noted. Pt also has right eye blurry vision. Decadron was started. At this time, neurology consult was not indicated. 06/26 Pt c/o hallucination, may start seroquel. 06/27 Low Na and Cl, dehydration suspected, started on IVF. 06/28 Hgb 6.7, transfuse one unit PRBC, unclear this is tumor related, her last transfusion is about 3 months ago. stool for occcult blood. UA for blood. repeat H/H in am. (3) Diabetes mellitus Current Visit: Yes Status: Chronic Assessment and Plan: Continue insulin sliding scale. Basal insulin dose increased due to high BG caused by decradron. Dacradron dc'ed. (4) ERIC (acute kidney injury) Current Visit: Yes Status: Resolved (5) Anemia Current Visit: No Status: Chronic Assessment and Plan: Hgb 6.7 today, Pt has baseline chronic low Hgb (7-8). recently started on AC due to suspicious DVT. will check occult blood and UA to r/o bleeding. transfuse one unit PRBC. monitor h/h. (6) Altered mental status Current Visit: Yes Status: Acute Assessment and Plan: Patient seems to be at her baseline at this time and not warranting further intervention. (7) Cellulitis Current Visit: Yes Status: Acute Assessment and Plan: 06/23 Significant inflammatory changes noted. Amp/sulbactam administered in the ER does not cover Pseudomonas. Will start cefepime 2grs q8hrs that retains activity against MSSA as well as Pseudomonas. Check doppler of lower extremity to rule out DVT given the significant swelling. Leg elevation at all times. 06/24 Wound culture grew Staphylococcus aureus and Pseudomonas. Continue IV cefepime. topical Silvadene once a day. 06/25 continue current treatment. 06/26 Dc'ed IV abx, started on Levaquin oral based on sensitivity results. 06/27 continue current treatment. 06/28 continue oral abx. DVT Prophylaxis: on Coumadin. - Time Spent with Patient Total time spent is greater than 50% in coordination of care (as documented) at patient's floor/unit and/or counseling patient: Greater than 35 minutes Plan of Care Discussed with: patient Internal Medicine: Result - Labs CBC & Chem 7: 06/28/18 02:15 06/28/18 02:15 Labs: Short CBC 06/28/18 Range/Units 02:15 WBC 5.0 (4.3-11.1) K/mcL Hgb 6.4 L (11.5-15.4) g/dL Hct 20.2 L (35.3-44.9) % Plt Count 116 L (140-400) K/mcL BMP 06/28/18 02:15 Sodium 132 L Potassium 5.3 H Chloride 98 Carbon Dioxide 27 BUN 29 H Creatinine 1.14 Glucose 281 H Calcium 9.0 - ABG Interpretation ABG results: PT/INR, D-dimer PT 19.4 Seconds (9.4-12.1) H 06/28/18 02:15 Consult Discharge Plan - Plan Referrals: Dalila Acuña MD [Primary Care Provider] - 06/29/18 10:45 am () (1) DVT (deep venous thrombosis) Qualifiers: DVT location: lower extremity Chronicity: unspecified Laterality: left (3) Diabetes mellitus Qualifiers: Diabetes mellitus type: type 2 Diabetes mellitus longterm insulin use: with longterm use Diabetes mellitus complication status: with hyperglycemia Qualified Code(s): E11.65 - Type 2 diabetes mellitus with hyperglycemia; Z79.4 - intermediate project manager (current) use of insulin (5) Anemia Qualifiers: Anemia type: unspecified type Qualified Code(s): D64.9 - Anemia, unspecified (6) Altered mental status Qualifiers: Altered mental status type: disorientation Qualified Code(s): R41.0 - Disorientation, unspecified (7) Cellulitis Qualifiers: Site of cellulitis: extremity Site of cellulitis of extremity: lower extremity Laterality: left Qualified Code(s): L03.116 - Cellulitis of left lower limb
[2018-06-28] MEDS: Insulin LISPRO 300 UNITS/3 ML VIAL SQ SCH ×4 (10:21→20:42)
[2018-06-28] MEDS: (Incruse Ellipta] 62.5 MCG) IH SCH (10:25)
[2018-06-28] MEDS: Silver Sulfadiazine 50 GM TUBE TP SCH (10:25)
[2018-06-28] MEDS ORDERED: 0.9 % Sodium Chloride 500 ML ONE (11:51)
[2018-06-28 13:02] LABS: Bilirubin,Urine Negative (Negative); Blood,Urine Moderate (Negative); Clarity,Urine Clear (Clear); Color,Urine Yellow (Yellow); Glucose,Urine (UA) Normal (Normal); Ketones,Urine Negative (Negative); Leukocyte Esterase,Urine Trace (Negative); Nitrite,Urine Negative (Negative); Protein,Urine Negative (Neg-Trace); Specific Gravity,Urine 1.015 (1.010-1.025); Urobilinogen,Urine Normal (Normal)
[2018-06-28 13:03] LABS: Bacteria,Urine None Seen per hpf (None-Few); Hyaline Casts,Urine None Seen per lpf (None-Few); WBC,Urine 0-3 per hpf (0-3)
[2018-06-28 13:24] LABS: Squamous Epithelial Cell,Urine Few per lpf (None-Few)
[2018-06-28] MEDS ORDERED: *HR* Warfarin 2.5 MG TABLET PO ONE (18:00)
[2018-06-28] MEDS: Insulin DETEMIR 100 UNIT/ML X5UNITS SQ SCH (20:42)
[2018-06-28] MEDS: Melatonin 3 MG TABLET PO SCH (20:42)
[2018-06-28] MEDS: *HR* OxyCODONE Immed Rel 5 MG TABLET PO PRN (23:41)
[2018-06-29] MEDS: *HR* OxyCODONE ER (12 HR) 20 MG TABLET PO SCH ×2 (05:40→16:52)
[2018-06-29 06:31] LABS: Hematocrit 27.2 % (35.3-44.9); Mean Corpuscular HGB Conc 31.6 g/dL (31.6-35.5); Mean Corpuscular Hemoglobin 28.5 pg (28.0-33.3); Mean Corpuscular Volume 90.1 fL (83.0-100.0); Mean Platelet Volume 9.8 fL (9.4-12.4); Platelet Count 154 K/mcL (140-400); Red Blood Count 3.02 M/mcL (3.82-4.97); Red Cell Distribution Width 14.8 % (11.5-14.5)
[2018-06-29 06:43] LABS: INR 1.6
[2018-06-29 06:48] LABS: Hemoglobin 8.6 g/dL (11.5-15.4)
[2018-06-29 06:54] LABS: BUN/Creatinine Ratio 29 (6-26); Blood Urea Nitrogen 28 mg/dL (8-23); Calcium 8.8 mg/dL (8.6-10.3); Carbon Dioxide 30 mEq/L (23-29); Chloride 102 mEq/L (98-107); Glucose 120 mg/dL (70-105); Osmolality,Calculated 291 (280-300); Potassium 4.4 mEq/L (3.5-5.1); Sodium 137 mEq/L (136-145); eGFR For Non-African Americans 58 (> 60)
[2018-06-29] MEDS: Lactobacillus 1 EACH CAP.SPRINK PO SCH ×2 (08:35→20:56)
[2018-06-29] MEDS: levETIRAcetam 250 MG TABLET PO SCH ×2 (08:35→20:56)
[2018-06-29] MEDS: Insulin LISPRO 300 UNITS/3 ML VIAL SQ SCH ×4 (08:35→20:56)
[2018-06-29] MEDS: levoFLOXacin 750 MG TABLET PO SCH (08:36)
[2018-06-29] MEDS: Gabapentin 400 MG CAPSULE PO SCH ×3 (08:36→20:55)
[2018-06-29] MEDS: *HR* OxyCODONE Immed Rel 5 MG TABLET PO PRN ×2 (08:37→21:10)
[2018-06-29] MEDS: (Incruse Ellipta] 62.5 MCG) IH SCH (08:37)
--- NOTE | 2018-06-29 11:36 | Internal Med Progress Note ---
Hospitalist Progress Note - Encounter Date of Encounter: 06/29/18 Time of Encounter: 11:33 - Subjective Interval History: Patient seen and examined in the room, she has no fever, chills, night sweats. No headache, weakness, or numbness. - Exam Vitals: Temp Pulse Resp BP Pulse Ox 97.8 F 90 16 106/63 97 06/29/18 07:47 06/29/18 07:47 06/29/18 07:47 06/29/18 07:47 06/29/18 07:47 Exam: Vitals: Reviewed General: Obese white woman lying in bed in NAD Skin: Pale, warm, dry. HEENT: Moist mucous membranes.(+) conjunctivae pallor. Neck: No JVD. No carotid bruits. No palpable thyroid. Chest: Normal thoracic expansion. Normal breath sounds. Clear to auscultation. Heart: Normal S1 & S2; rhythmic. No rubs or murmurs. Abdomen: Non-distended, soft and non-tender to palpation. No peritoneal reaction. Extremities: Left leg circumferentially larger than the right, erythematous with pitting edema and skin dimpling; 2cm ulcer on the dorsum of the left foot with a yellow base but no active suppuration. Neurological: Awake, alert and oriented to person, place and time. No focal deficits. Psych: Affect appropriate. - Assessment and Plan (1) DVT (deep venous thrombosis) Current Visit: Yes Status: Acute Assessment and Plan: Venous Doppler ultrasound showed suspicious DVT. Had sudden hgb drop yesterday and received one unit PRBC. Stool occult bloodis negative, and no identifiable source of bleeding, low hgb is likely lab artifiact in light of chronic severe anemia due to end stage cancer. INR today is therapeutic, 1.7, pharmacy to dose coumadin. housekeeping worker for hospice placement. (2) Metastatic melanoma Current Visit: Yes Status: Chronic Assessment and Plan: 06/23 continue to follow with oncology. Prognosis poor. Signed papers to be DNR/CCA/DNI during admission last week and placed on home hospice care. clinical trials manager to follow up. 06/24 Patient was on home hospice prior to admission. Both patient and family wish go ing home with home hospice. Patient already on seizure precaution due to brain metastases. No signs of intracranial hypertension. Anticipated discharge home with home hospice once INR therapeutic. 06/25 Repeat MR brain showed large right frontal lesion with wong-mass edema, several other small lesions scattered also noted. Pt also has right eye blurry vision. Decadron was started. At this time, neurology consult was not indicated. 06/26 Pt c/o hallucination, may start seroquel. 06/27 Low Na and Cl, dehydration suspected, started on IVF. 06/28 Hgb 6.7, transfuse one unit PRBC, unclear this is tumor related, her last transfusion is about 3 months ago. stool for occcult blood. UA for blood. repeat H/H in am. 06/29 Bleeding workup is not revealing, Hgb 6.4-->8.6 after one unit PRBC, drop of hgb is likely lab artifact in light of severe baseline anemia. continue anticoagulation for DVT. (3) Diabetes mellitus Current Visit: No Status: Chronic Assessment and Plan: BG well controlled after dc decradron and increase basal insulin dose. (4) ERIC (acute kidney injury) Current Visit: Yes Status: Resolved (5) Anemia Current Visit: No Status: Chronic Assessment and Plan: 06/28 Hgb 6.7 today, Pt has baseline chronic low Hgb (7-8). recently started on AC due to suspicious DVT. will check occult blood and UA to r/o bleeding. transfuse one unit PRBC. monitor h/h. 06/29 No identifiable bleeding source, Hgb 6.4-->8.6 after one unit PRBC. Continue monitoring H/H. (6) Altered mental status Current Visit: Yes Status: Resolved (7) Cellulitis Current Visit: Yes Status: Acute Assessment and Plan: 06/23 Significant inflammatory changes noted. Amp/sulbactam administered in the ER does not cover Pseudomonas. Will start cefepime 2grs q8hrs that retains activity against MSSA as well as Pseudomonas. Check doppler of lower extremity to rule out DVT given the significant swelling. Leg elevation at all times. 06/24 Wound culture grew Staphylococcus aureus and Pseudomonas. Continue IV cefepime. topical Silvadene once a day. 06/25 continue current treatment. 06/26 Dc'ed IV abx, started on Levaquin oral based on sensitivity results. 06/27 continue current treatment. 06/28 continue oral abx. 06/29 Continue oral abx. - Time Spent with Patient Total time spent is greater than 50% in coordination of care (as documented) at patient's floor/unit and/or counseling patient: Greater than 35 minutes Plan of Care Discussed with: patient Internal Medicine: Result - Labs CBC & Chem 7: 06/29/18 06:00 06/29/18 06:00 Labs: Short CBC 06/29/18 Range/Units 06:00 WBC 5.7 (4.3-11.1) K/mcL Hgb 8.6 L D (11.5-15.4) g/dL Hct 27.2 L (35.3-44.9) % Plt Count 154 (140-400) K/mcL BMP 06/29/18 06:00 Sodium 137 Potassium 4.4 Chloride 102 Carbon Dioxide 30 H BUN 28 H Creatinine 0.97 Glucose 120 H Calcium 8.8 Urine 06/28/18 Range/Units 12:30 Urine Color Yellow (Yellow) Urine Clarity Clear (Clear) Urine pH 6.0 (5.0-8.0) pH Units Ur Specific [place] 1.015 (1.010-1.025) Urine Protein Negative (Neg-Trace) mg/dL Urine Glucose (UA) Normal (Normal) mg/dL - ABG Interpretation ABG results: PT/INR, D-dimer PT 18.0 Seconds (9.4-12.1) H 06/29/18 06:00 Consult Discharge Plan - Plan Referrals: Dalila Acuña MD [Primary Care Provider] - (1) DVT (deep venous thrombosis) Qualifiers: DVT location: lower extremity Chronicity: unspecified Laterality: left (3) Diabetes mellitus Qualifiers: Diabetes mellitus type: type 2 Diabetes mellitus intermodal customer service insulin use: with care home use Diabetes mellitus complication status: with hyperglycemia Qualified Code(s): E11.65 - Type 2 diabetes mellitus with hyperglycemia; Z79.4 - detention (current) use of insulin (5) Anemia Qualifiers: Anemia type: unspecified type Qualified Code(s): D64.9 - Anemia, unspecified (6) Altered mental status Qualifiers: Altered mental status type: disorientation Qualified Code(s): R41.0 - Disori entation, unspecified (7) Cellulitis Qualifiers: Site of cellulitis: extremity Site of cellulitis of extremity: lower extremity Laterality: left Qualified Code(s): L03.116 - Cellulitis of left lower limb
--- NOTE | 2018-06-29 14:35 | Discharge Summary ---
- NOTES TO OUTPATIENT PROVIDER Notes to Outpatient Provider: f/u with PCP as needed. Orders not resulted at time of discharge: Pending orders 06/30/18 04:00 BMP [Basic Metabolic Panel] AM 0400 Complete Blood Count [HEME] AM 0400 INR/PT [Prothrombin Time INR] [COAG] AM 0400 07/01/18 04:00 INR/PT [Prothrombin Time INR] [COAG] AM 0400 07/02/18 04:00 INR/PT [Prothrombin Time INR] [COAG] AM 0400 07/03/18 04:00 INR/PT [Prothrombin Time INR] [COAG] AM 0400 Date of Encounter: 06/29/18 Time of Encounter: 14:31 - Discharge Diagnosis (1) DVT (deep venous thrombosis) Priority: Primary Status: Acute Qualifiers: DVT location: lower extremity Chronicity: unspecified Laterality: left Qualified Code(s): I82.402 - Acute embolism and thrombosis of unspecified deep veins of left lower extremity (2) Metastatic melanoma Priority: Secondary Status: Chronic (3) Diabetes mellitus Priority: Secondary Status: Chronic Qualifiers: Diabetes mellitus type: type 2 Diabetes mellitus longshore equipment operator insulin use: with longshore equipment operator use Diabetes mellitus complication status: with hyperglycemia Qualified Code(s): E11.65 - Type 2 diabetes mellitus with hyperglycemia; Z79.4 - bed bug exterminator (current) use of insulin (4) ERIC (acute kidney injury) Priority: Primary Status: Resolved (5) Anemia Priority: Secondary Status: Chronic Qualifiers: Anemia type: unspecified type Qualified Code(s): D64.9 - Anemia, unspecified (6) Altered mental status Priority: Primary Status: Resolved Qualifiers: Altered mental status type: disorientation Qualified Code(s): R41.0 - Disorientation, unspecified (7) Cellulitis Priority: Secondary Status: Chronic Qualifiers: Site of cellulitis: extremity Site of cellulitis of extremity: lower extremity Laterality: left Qualified Code(s): L03.116 - Cellulitis of left lower limb Hospital course: Ghazala Uribe is a 63 year old woman with metastatic melanoma and was diagnosed in 2005 with recurrent disease developing in 2010 now having extensive disease involving the brain, groin and lungs that progressed despite radiation and chemotherapy. She was admitted here recently for sepsis due to a left foot ulcer with cultures revealing of P. aeruginosa and MSSA. After receiving empiric antibiotics she was discharged to home hospice on 06/13 to complete a course with levofloxacin. She is brought back into the ER by her family member caretaker care who stated that she seemed a bit more confused than normal as she was looking for things and unable to find items and being somewhat disoriented. It was stated that this was similar to her prior presentation which cause concern and therefore was brought in. There was concern for ongoing cellulitic changes and was given doxycycline and an amp/sulbactam in the emergency room. Her labs are grossly unremarkable other than an elevation in her serum creatinine. The family expressed concern to the emergency room staff with the discomfort in taking the patient home therefore she is admitted for observation. It does not appear there is understanding as to what home hospice entails. She reports no improvement in her leg symptoms while on levofloxacin but completed the prescribed course. Pt was started on IV cefepime for cellulitis and wound care consult was placed. A doppler of lower extremities showed suspicious for DVT, heparin was started and bridged to oral coumadin. topical silvadene was ordered for the wound and dressing has been changed dialy. Wound has improved and as well as cellulitis. Her INR was therapeutic for 2 days but on the discharge day it dropped to 1.7. Her hgb was dropped from 7.6 to 6.4, she received one unit of PRBC, bleeding workup including stool for occult blood and UA was unrevealing. Hgb improved to 8.6 on the discharge day and pt has no signs of active bleeding. ERIC resolved after IVF and discontinuation of Lasix. After discussed with patient and family, they wish that pt be discharged to facility with hospice care. She will be discharged today. She was instructed to continue oral Levaquin for 4 days. F/u with PCP and oncology as needed. Discharge discussed with: patient, family Time spent discussing smoking cessation with patient: more than 10 minutes - Time Spent with Patient Total time spent providing and/or coordinating discharge services:45 mins. Greater than 30 minutes - Discharge Medications Prescriptions: levoFLOXacin [Levaquin] 750 mg PO DAILY #4 tablet Home Medications: Fluticasone Propionate [Flovent Hfa] 220 mcg IH BID PRN 02/02/16 [History] Levothyroxine Sodium [Synthroid] 200 mcg PO DAILY 04/09/17 [History] Omeprazole [PriLOSEC] 20 mg PO BID 04/09/17 [History] levETIRAcetam [Keppra] 750 mg PO BID #90 tablet 04/11/17 [Rx] Insulin DETEMIR [Levemir] 24 unit SQ DAILY 07/10/17 [History] Metformin HCl [Glucophage] 1,000 mg PO BID 07/10/17 [History] Amitriptyline [Elavil] 50 mg PO HS #90 tablet 02/06/18 [Rx] Gabapentin [Neurontin] 800 mg PO TID #90 tablet 06/01/18 [Rx] OxyCODONE ER (12 HR) [OxyCONTIN] 20 mg PO Q12HR 30 Days #60 tab.er.12h 06/04/18 [Rx] OxyCODONE Immed Rel [Roxicodone 10 MG] 10 - 20 mg PO Q4H PRN 30 Days #360 tab 06/04/18 [Rx] Promethazine [Phenergan] 25 mg PO Q6HR PRN #60 tablet 06/04/18 [Rx] Citalopram Hydrobromide [Celexa] 20 mg PO DAILY #0 06/13/18 [Rx] Albuterol Sulfate [Albuterol Inhaler] 2 puff IH Q4HR PRN 06/23/18 [History] Allopurinol [Zyloprim 100 MG] 100 mg PO BID 06/23/18 [History] Diphenhydramine HCl [Nighttime Sleep Aid] 50 mg PO HS PRN 06/23/18 [History] L. Acidophilus/Pectin, [place] [Acidophilus Probiotic Capsule] 1 cap PO DAILY 06/23/18 [History] Melatonin 10 mg PO HS PRN 06/23/18 [History] Patient Taking Own Medication 0 each IH DAILY each 06/29/18 [Rx] levoFLOXacin [Levaquin] 750 mg PO DAILY #4 tablet 06/29/18 [Rx] Allergies/Adverse Reactions: Allergy/AdvReac Type Severity Reaction Status Date / Time No Known Allergies Allergy Verified 04/21/18 09:16 Date of admission: 06/23/18 17:31 Primary care physician: Dalila Acuña Consults: 06/27/18 07:40 PT [Consult to Physical Therapy] [CONS] Routine Comment: Evaluate, develop and implement POC Reason for Consult: eval and treat Does patient have active BEDREST order?: No Is patient medically & hemodynamically stable?: Yes Patient assessed for mobility or mobilized this visit?: Yes 06/27/18 07:41 OT [Consult to Occupational Therapy] [CONS] Routine Comment: Evaluate, develop and implement POC Reason for Consult: eval and treat Does patient have active BEDREST order?: No Is patient medically & hemodynamically stable?: Yes Patient assessed for mobility or mobilized this visit?: Yes Anticipated date of discharge: 06/29/18 - Constitutional Vitals: Temp Pulse Resp BP Pulse Ox 98.3 F 96 16 92/55 96 06/29/18 11:33 06/29/18 11:33 06/29/18 11:33 06/29/18 11:33 06/29/18 11:33 General appearance: Present: cooperative, A&O X 3, answers questions appropriately Exam: Vitals: Reviewed General: Obese white woman lying in bed in NAD Skin: Pale, warm, dry. HEENT: Moist mucous membranes.(+) conjunctivae pallor. Neck: No JVD. No carotid bruits. No palpable thyroid. Chest: Normal thoracic expansion. Normal breath sounds. Clear to auscultation. Heart: Normal S1 & S2; rhythmic. No rubs or murmurs. Abdomen: Non-distended, soft and non-tender to palpation. No peritoneal reaction. Extremities: Left leg circumferentially larger than the right, erythematous with pitting edema and skin dimpling; 2cm ulcer on the dorsum of the left foot with a yellow base but no active suppuration. Neurological: Awake, alert and oriented to person, place and time. No focal deficits. Psych: Affect appropriate. - Patient Status Disposition: Transfer SNF Condition: Fair Functional capacity at discharge: wheelchair bound Overall status at discharge: patient is progressing back to baseline - Discharge Instructions Follow Up With: Dallia Acuña MD [Primary Care Provider] - Forms: ED Satisfaction Letter - Diet and Activity Activity: increase activity as tolerated Diet: advance to your usual diet
--- NOTE | 2018-06-29 14:46 | Physician Discharge Referral ---
ExtendedCare Referral Info Provider in Charge after Transfer: Other Institutional Level of Care: Skilled - Diagnosis (1) DVT (deep venous thrombosis) Priority: Primary Status: Acute (2) Metastatic melanoma Priority: Secondary Status: Chronic (3) Diabetes mellitus Priority: Secondary Status: Chronic (4) ERIC (acute kidney injury) Priority: Primary Status: Resolved (5) Anemia Priority: Secondary Status: Chronic (6) Altered mental status Priority: Primary Status: Resolved (7) Cellulitis Priority: Secondary Status: Chronic Prognosis: Poor Aware of Diagnosis: Patient, Family Aware of Prognosis: Patient, Family - Transfer Medications Prescriptions: levoFLOXacin [Levaquin] 750 mg PO DAILY #4 tablet Home Medications: Fluticasone Propionate [Flovent Hfa] 220 mcg IH BID PRN 02/02/16 [History] Levothyroxine Sodium [Synthroid] 200 mcg PO DAILY 04/09/17 [History] Omeprazole [PriLOSEC] 20 mg PO BID 04/09/17 [History] levETIRAcetam [Keppra] 750 mg PO BID #90 tablet 04/11/17 [Rx] Insulin DETEMIR [Levemir] 24 unit SQ DAILY 07/10/17 [History] Metformin HCl [Glucophage] 1,000 mg PO BID 07/10/17 [History] Amitriptyline [Elavil] 50 mg PO HS #90 tablet 02/06/18 [Rx] Gabapentin [Neurontin] 800 mg PO TID #90 tablet 06/01/18 [Rx] OxyCODONE ER (12 HR) [OxyCONTIN] 20 mg PO Q12HR 30 Days #60 tab.er.12h 06/04/18 [Rx] OxyCODONE Immed Rel [Roxicodone 10 MG] 10 - 20 mg PO Q4H PRN 30 Days #360 tab 06/04/18 [Rx] Promethazine [Phenergan] 25 mg PO Q6HR PRN #60 tablet 06/04/18 [Rx] Citalopram Hydrobromide [Celexa] 20 mg PO DAILY #0 06/13/18 [Rx] Albuterol Sulfate [Albuterol Inhaler] 2 puff IH Q4HR PRN 06/23/18 [History] Allopurinol [Zyloprim 100 MG] 100 mg PO BID 06/23/18 [History] Diphenhydramine HCl [Nighttime Sleep Aid] 50 mg PO HS PRN 06/23/18 [History] L. Acidophilus/Pectin, [place] [Acidophilus Probiotic Capsule] 1 cap PO DAILY 06/23/18 [History] Melatonin 10 mg PO HS PRN 06/23/18 [History] Patient Taking Own Medication 0 each IH DAILY each 06/29/18 [Rx] levoFLOXacin [Levaquin] 750 mg PO DAILY #4 tablet 06/29/18 [Rx] Allergies/Adverse Reactions: Allergy/AdvReac Type Severity Reaction Status Date / Time No Known Allergies Allergy Verified 04/21/18 09:16 - Respiratory Orders Smoking Cessation: Smoking cessation has been advised. For more information, call the [facility] Tobacco Quit Line at 0-520-PJHZ-NOW. - Advance Directives Code Status: DNR-Arrest - Rehabiliation Orders Rehab Orders: ROM Exercises, Evaluation for Physical Therapy, Evaluation for Occupational Therapy - Treatments Skin tear care topically daily PRN per policy - Diet Orders Regular CERTIFICATION: I certify that the transfer of the above named patient to an Extended Care Facility is necessary for the continuing treatment of the diagnosis listed. The above information is true and accurate reflection of patient's current condition. Confidential - Redisclosure prohibited without a patient's written consent.
[2018-06-29] MEDS ORDERED: *HR* Warfarin 5 MG TABLET PO ONE (18:00)
[2018-06-29] MEDS: Melatonin 3 MG TABLET PO SCH (20:55)
[2018-06-29] MEDS: Insulin DETEMIR 100 UNIT/ML X5UNITS SQ SCH (20:56)
[2018-06-30] MEDS: *HR* OxyCODONE ER (12 HR) 20 MG TABLET PO SCH (05:23)
[2018-06-30 07:28] LABS: Basophils % 0.3 %; Eosinophils # 0.2 K/mcL (0.0-0.6); Eosinophils % 3.2 %; Hematocrit 26.3 % (35.3-44.9); Hemoglobin 8.2 g/dL (11.5-15.4); Immature Granulocytes % 2.3 % (0-4); Lymphocytes # 0.4 K/mcL (0.6-4.6); Lymphocytes % 6.5 %; Mean Corpuscular HGB Conc 31.2 g/dL (31.6-35.5); Mean Corpuscular Volume 92.9 fL (83.0-100.0); Mean Platelet Volume 9.9 fL (9.4-12.4); Monocytes # 0.7 K/mcL (0.0-1.3); Monocytes % 10.8 %; Neutrophils # 5.1 K/mcL (1.6-8.9); Platelet Count 144 K/mcL (140-400); Red Blood Count 2.83 M/mcL (3.82-4.97); Segmented Neutrophils % 76.9 %
[2018-06-30] MEDS: Insulin LISPRO 300 UNITS/3 ML VIAL SQ SCH ×2 (07:28→11:27)
[2018-06-30 07:44] LABS: INR 1.6; Prothrombin Time 17.6 Seconds (9.4-12.1)
[2018-06-30 07:46] LABS: BUN/Creatinine Ratio 26 (6-26); Blood Urea Nitrogen 28 mg/dL (8-23); Carbon Dioxide 32 mEq/L (23-29); Chloride 101 mEq/L (98-107); Glucose 85 mg/dL (70-105); Osmolality,Calculated 289 (280-300); Potassium 4.6 mEq/L (3.5-5.1); Sodium 137 mEq/L (136-145); eGFR For Non-African Americans 51 (> 60)
[2018-06-30] MEDS: Lactobacillus 1 EACH CAP.SPRINK PO SCH (08:11)
[2018-06-30] MEDS: levoFLOXacin 750 MG TABLET PO SCH (08:12)
[2018-06-30] MEDS: levETIRAcetam 250 MG TABLET PO SCH (08:12)
[2018-06-30] MEDS: Gabapentin 400 MG CAPSULE PO SCH ×2 (08:12→15:07)
[2018-06-30] MEDS: (Incruse Ellipta] 62.5 MCG) IH SCH (09:46)
[2018-06-30 10:58] VITALS: BP 113/63
[2018-06-30] MEDS ORDERED: Acetaminophen 325 MG TABLET PO ONE (11:06)
[2018-06-30] MEDS: *HR* OxyCODONE Immed Rel 5 MG TABLET PO PRN (16:51)
[2018-06-30] MEDS ORDERED: *HR* Warfarin 5 MG TABLET PO ONE (18:00)
== END 2018-06-30 16:49 | DRG 603 ==
LOC: EMEROOARM 19:13 → 3BNU 19:13
PROVIDERS: ADMIT Internal Medicine; ATTEND Internal Medicine